=== PATIENT | female | born 1945 | race Caucasian/White ===

== ENCOUNTER 2018-03-07 07:26 | Day surgery (SDC) | payer BC ==
[2018-02-28 13:00] LABS: HEMATOCRIT 40.9 % (36.0-47.0); HEMOGLOBIN 13.8 g/dL (12.0-15.5); MEAN CORPUSCULAR HEMOGLOBIN 28.8 pg (27.0-33.4); MEAN CORPUSCULAR HGB CONC 33.8 g/dL (32.0-36.0); MEAN CORPUSCULAR VOLUME 86 fl (80-97); PLATELET COUNT 188 10^3/uL (150-450); RED BLOOD COUNT 4.79 10^6/uL (3.72-5.28); WHITE BLOOD COUNT 5.9 10^3/uL (4.0-10.5)
[2018-02-28 13:07] LABS: APPEARANCE,URINE SLIGHTLY-CLOUDY; BILIRUBIN,URINE NEGATIVE (NEGATIVE); COLOR,URINE YELLOW; GLUCOSE, URINE NEGATIVE (NEGATIVE); KETONES,URINE NEGATIVE (NEGATIVE); LEUKOCYTE ESTERASE,URINE LARGE (NEGATIVE); NITRITE,URINE NEGATIVE (NEGATIVE); PROTEIN,URINE NEGATIVE (NEGATIVE); URINE SPECIFIC GRAVITY 1.015; UROBILINOGEN,URINE NEGATIVE mg/dL (<2.0)
--- NOTE | 2018-02-28 13:26 | EKG REPORT ---
SEVERITY:- ABNORMAL ECG - SINUS RHYTHM LVH WITH SECONDARY REPOLARIZATION ABNORMALITY ANTERIOR Q WAVES, POSSIBLY DUE TO LVH : Confirmed by: Kulwant Ang MD 28-Feb-2018 13:25:22
[~2018-03-07 07:26] MED LIST: LACTATED RINGERS 1000 ML IV PRN; LIDOCAINE 0.5% INJ-PF (5 MG/ML) 50 ML SDV SUBCUT PRN
[2018-03-07 08:14] LABS: INTERNATIONAL RATION (INR) 1.04; PROTHROMBIN TIME 14.1 SEC (11.4-15.4)
[2018-03-07 08:27] LABS: POTASSIUM 4.5 mmol/L (3.6-5.0)
[2018-03-07] MEDS ORDERED: FENTANYL CITRATE INJ/PF 100 MCG/2 ML AMPUL ONE (08:50)
[2018-03-07] MEDS ORDERED: LIDOCAINE 2% INJ-PF (20 MG/ML) 10 ML AMPUL ONE (08:50)
[2018-03-07] MEDS ORDERED: MIDAZOLAM 2 MG/2 ML INJ ONE (08:51)
[2018-03-07] MEDS ORDERED: PROPOFOL INJ 200 MG/20 ML VIAL IV ONE (08:51)
[2018-03-07] MEDS ORDERED: KETOROLAC TROMETHAMINE 60 MG/2 ML SDV ONE (08:52)
[2018-03-07] MEDS ORDERED: VANCOMYCIN HCL INJ 1000 MG VIAL ONE (09:26)
[2018-03-07] MEDS ORDERED: DIPHENHYDRAMINE HCL 50 MG/ML VIAL IV PRN (09:31)
[2018-03-07] MEDS ORDERED: ONDANSETRON HCL INJ/PF 4 MG/2 ML SDV IV PRN (09:31)
[2018-03-07] MEDS ORDERED: FENTANYL CITRATE INJ/PF 100 MCG/2 ML AMPUL IV PRN ×3 (09:31)
[2018-03-07] MEDS ORDERED: PROMETHAZINE HCL INJ 25 MG/1 ML VIAL IV PRN ×2 (09:31)
--- NOTE | 2018-03-07 10:31 | OPERATIVE REPORT E ---
Operative Report NAME: SUJATA ROMAN : 1945 AGE: 72Y DATE OF SURGERY: 03/07/2018 ROOM: PREOPERATIVE DIAGNOSIS: Postmenopausal bleeding. POSTOPERATIVE DIAGNOSIS: Uterine polyps. OPERATION: D and C diagnostic hysteroscopy with removal of polyp. SURGEON: Nadiya MANCUSO M.D. ANESTHESIA: General. ESTIMATED BLOOD LOSS: Less than 5 mL. TISSUE REMOVED: Endometrial polyp. PROCEDURE: Patient was placed in a dorsal lithotomy position, prepped and draped in the usual sterile fashion. Speculum was placed. Cervix visualized and grasped with a single-toothed tenaculum and sounded to a depth of 10 cm. The hysteroscope was easily placed through the os with minimal dilation and a large polyp was noted. Using the MyoSure, this polyp was removed. Following this, sharp curettage was performed. A repeat hysteroscopy was done with findings of the polyp having been removed. The tenaculum was removed and procedure terminated. She tolerated well. Taken to recovery in good condition. DICTATING PHYSICIAN: Nadiya MANCUSO M.D. [id number] PHY#: [id number] ID: [id number] JOB#: [id number] ACCT: [id number] cc:Nadiya MANCUSO M.D. >
[2018-03-07 12:31] VITALS: BP 169/73
== END 2018-03-07 11:50 | disposition home or self-care (01) ==
LOC: OROUT 07:26
PROVIDERS: ATTEND Obstetrics & Gynecology Gynecology
PROC: 0UDB8ZX Extraction of Endometrium, Via Natural or Artificial Opening Endoscopic, Diagnostic (ICD-10-PCS; 2018-03-07)
PROC: 0UB98ZX Excision of Uterus, Via Natural or Artificial Opening Endoscopic, Diagnostic (ICD-10-PCS; principal; 2018-03-07 09:15)
DX: N95.0 Postmenopausal bleeding (principal); C54.1 Malignant neoplasm of endometrium; I10 Essential (primary) hypertension; E11.9 Type 2 diabetes mellitus without complications; E66.9 Obesity, unspecified; Z68.42 Body mass index [BMI] 45.0-49.9, adult
CPT/HCPCS: 93005; 36415 ×2; 82947; 84132; 85027; 85610; 85730; 81001; 88305 ×2; 93010; 58558; J2250; J1885; J3010; J2704; J3370; J3490; 952

== ENCOUNTER 2018-03-31 01:08 | Emergency (ER) | payer BC ==
[2018-03-31] MEDS ORDERED: NORMAL SALINE 1000 ML 500 ML IV ONE (01:54)
--- NOTE | 2018-03-31 01:56 | ER Document Report ---
ED GI/ - General Chief Complaint: Abdominal Pain Stated Complaint: ABDOMINAL PAIN Time Seen by Provider: 03/31/18 01:44 Notes: Patient is a 72-year-old female comes emergency department for chief complaint of mid to lower abdominal pain for the past 3 days, it has become constant and more painful, worse when she is standing and resolves some when she is lying flat. She denies chest pain, nausea vomiting, fever or chills. She had a normal bowel movement within the past 24 hours. Past surgeries include cholecystectomy and hernia repair in 1995, she has also been diagnosed with endometrial cancer and has a follow-up with [facility] in [place] later this month. Other medical history includes CVA (on Plavix), IDDM. TRAVEL OUTSIDE OF THE [place] IN LAST 30 DAYS: No - Related Data Allergies/Adverse Reactions: atenolol [Atenolol] Allergy (Severe, Verified 04/05/16 07:48) dapagliflozin [From Farxiga] Allergy (Severe, Verified 02/28/18 11:06) Syncope meperidine HCl [From Demerol] Allergy (Severe, Verified 04/05/16 07:48) oxycodone HCl [From Percodan] Allergy (Severe, Verified 02/28/18 11:05) oxycodone terephthalate [From Percodan] Allergy (Severe, Verified 02/28/18 11:05 ) VOMITING Penicillins Allergy (Severe, Verified 02/28/18 11:05) saxagliptin [From Onglyza] Allergy (Severe, Verified 02/28/18 11:06) adhesive tape Allergy (Verified 04/05/16 07:48) Past Medical History - General Information source: Patient - Social History Smoking Status: Never Smoker Chew tobacco use (# tins/day): No Frequency of alcohol use: None Drug Abuse: None Lives with: Family Family History: Reviewed & Not Pertinent, CAD, DM, Other - chf Patient has suicidal ideation: No Patient has homicidal ideation: No - Past Medical History Cardiac Medical History: Reports: Hx Hypercholesterolemia, Hx Hypertension Denies: Hx Coronary Artery Disease, Hx Heart Attack Pulmonary Medical History: Denies: Hx Asthma - as a child , Hx Bronchitis, Hx COPD, Hx Pneumonia Neurological Medical History: Reports: Hx Cerebrovascular Accident - Left & right-sided lacunar infarct. Denies: Hx Seizures Endocrine Medical History: Reports: Hx Diabetes Mellitus Type 2 Renal/ Medical History: Denies: Hx Peritoneal Dialysis Malignancy Medical History: Reports: Hx Lymphoma GI Medical History: Reports: Hx Gastroesophageal Reflux Disease Musculoskeletal Medical History: Reports Hx Arthritis Psychiatric Medical History: Denies: Hx Depression Past Surgical History: Reports: Hx Cardiac Catheterization - 1995 wake negative , Hx Cardiac Surgery - cardiac cath, Hx Cholecystectomy, Hx Herniorrhaphy, Hx Orthopedic Surgery, Hx Tonsillectomy - Immunizations Hx Diphtheria, Pertussis, Tetanus Vaccination: Yes Hx Pneumococcal Vaccination: 05/29/16 Review of Systems - Review of Systems Constitutional: No symptoms reported EENT: No symptoms reported Cardiovascular: No symptoms reported Respiratory: No symptoms reported Gastrointestinal: See HPI Genitourinary: No symptoms reported Female Genitourinary: No symptoms reported Musculoskeletal: No symptoms reported Skin: No symptoms reported Hematologic/Lymphatic: No symptoms reported Neurological/Psychological: No symptoms reported Physical Exam - Vital signs Vitals: Temp Pulse Resp BP Pulse Ox 98 F 81 18 172/80 H 97 03/31/18 01:18 03/31/18 01:18 03/31/18 01:18 03/31/18 01:18 03/31/18 01:18 - Notes Notes: GENERAL: Alert, interacts well. Appears calm, no noted distress HEAD: Normocephalic, atraumatic. EYES: Pupils equal, round, and reactive to light. Extraocular movements intact. ENT: Oral mucosa moist, tongue midline. NECK: Full range of motion. Supple. Trachea midline. LUNGS: Clear to auscultation bilaterally, no wheezes, rales, or rhonchi. No respiratory distress. HEART: Regular rate and rhythm. No murmur ABDOMEN: There is some middle lower abdominal tenderness, no guarding, no rebound tenderness, remaining abdominal exam is unremarkable. No noted hernias or erythema. EXTREMITIES: Moves all 4 extremities spontaneously. No edema, normal radial and dorsalis pedis pulses bilaterally. No cyanosis. BACK: no cervical, thoracic, lumbar midline tenderness. No saddle anesthesia, normal distal neurovascular exam. NEUROLOGICAL: Alert and oriented x3. Normal speech. [cranial nerves II through XII grossly intact]. PSYCH: Normal affect, normal mood. SKIN: Warm, dry, normal turgor. No rashes or lesions noted. Course - Re-evaluation Re-evalutation: Patient is actually quite well-appearing. She does have mid to lower abdominal tenderness on exam, no guarding, signs of hernia or incarcerated bowel. Mildly hypertensive initially. No fever, tachycardia, or hypotension. CBC, chemistry, lipase unremarkable. Urine still pending. CAT scan was performed because of patient's age and location of pain, however this shows no acute findings. Patient with no significant change on reevaluation. Urinalysis resulted, shows some squamous epithelials but also shows positive nitrates, large amount of white blood cells, bacteria, white blood cell clumps. Consistent with patient's physical examination, I suspect she has cystitis. No fever, confusion, or concerning symptoms otherwise. Discussed with patient. She has taken cephalosporins in the past with good results, she recently was on Cipro. Given Rocephin, placing on Keflex, culture urine, discussed follow- up and return precautions in detail, patient states satisfaction and agreement with plan. - Vital Signs Vital signs: Temp Pulse Resp BP Pulse Ox 98 F 81 18 172/80 H 97 03/31/18 01:18 03/31/18 01:18 03/31/18 01:18 03/31/18 01:18 03/31/18 01:18 - Laboratory Result Diagrams: 03/31/18 02:15 03/31/18 02:15 Laboratory results interpreted by me: 03/31/18 03/31/18 03/31/18 02:15 02:15 02:35 Plt Count 142 L BUN 22 H Glucose 236 H Total Protein 5.9 L Albumin 3.3 L Urine Nitrite POSITIVE H Urine Urobilinogen 2.0 H Ur Leukocyte Esterase LARGE H Urine Ascorbic Acid 40 H Discharge - Discharge Clinical Impression: Abdominal pain Qualifiers: Abdominal location: generalized Qualified Code(s): R10.84 - Generalized abdominal pain Condition: Stable Disposition: HOME, SELF-CARE Additional Instructions: Your CAT scan does not show any concerning new findings. You have been provided with a copy of this, give this to your provider in close follow-up. Laboratory workup was normal except for urinary tract infection. Urine has been cultured. Take Keflex antibiotics as prescribed to completion. Return if you worsen including worsening pain, vomiting, fever of 100.4 or greater, confusion, or any other concerning or worsening symptoms. Prescriptions: Cephalexin Monohydrate [Keflex 500 mg Capsule] 500 mg PO QID #28 capsule Referrals: RODRIGUEZ GEORGES MD [Primary Care Provider] - Follow up as needed
[2018-03-31 02:36] LABS: ABSOLUTE BASOPHILS # (AUTO) 0.1 10^3/uL (0.0-0.2); ABSOLUTE EOSINOPHILS # (AUTO) 0.1 10^3/uL (0.0-0.6); ABSOLUTE LYMPHOCYTES (AUTO) 1.3 10^3/uL (0.5-4.7); ABSOLUTE MONOCYTES (AUTO) 0.7 10^3/uL (0.1-1.4); ABSOLUTE NEUT (AUTO) 3.7 10^3/uL (1.7-8.2); BASOPHILS % (AUTO) 1.1 % (0-2); EOSINOPHILS % (AUTO) 2.2 % (0-6); HEMATOCRIT 39.3 % (36.0-47.0); HEMOGLOBIN 13.3 g/dL (12.0-15.5); LYMPHOCYTES % (AUTO) 22.2 % (13-45); MEAN CORPUSCULAR HEMOGLOBIN 28.9 pg (27.0-33.4); MEAN CORPUSCULAR HGB CONC 33.9 g/dL (32.0-36.0); MEAN CORPUSCULAR VOLUME 85 fl (80-97); MONOCYTES % (AUTO) 11.7 % (3-13); PLATELET COUNT 142 10^3/uL (150-450); RED BLOOD COUNT 4.61 10^6/uL (3.72-5.28); RED CELL DISTRIBUTION WIDTH 13.8 % (11.5-14.0); SEGMENTED NEUTROPHILS % (AUTO) 62.8 % (42-78); TOTAL CELLS COUNTED % (AUTO) 100 %
[2018-03-31 02:44] LABS: ALANINE AMINOTRANSFERASE 28 U/L (9-52); ALBUMIN 3.3 g/dL (3.5-5.0); ALKALINE PHOSPHATASE 76 U/L (38-126); ANION GAP 11 (5-19); ASPARTATE AMINO TRANSFERASE 20 U/L (14-36); BILIRUBIN,DIRECT 0.2 mg/dL (0.0-0.4); BILIRUBIN,TOTAL 0.6 mg/dL (0.2-1.3); BLOOD UREA NITROGEN 22 mg/dL (7-20); CALCIUM 8.9 mg/dL (8.4-10.2); CARBON DIOXIDE 28 mmol/L (22-30); CHLORIDE 106 mmol/L (98-107); GLUCOSE 236 mg/dL (75-110); LIPASE 204.2 U/L (23-300); POTASSIUM 4.3 mmol/L (3.6-5.0); SODIUM 144.5 mmol/L (137-145); TOTAL PROTEIN 5.9 g/dL (6.3-8.2)
--- NOTE | 2018-03-31 03:40 | RADIOLOGY REPORT (SQ) ---
EXAM DESCRIPTION: CT ABDOMEN PELVIS WITH IV CONTRAST COMPLETED DATE/TME: 03/31/2018 01:56 CLINICAL HISTORY: 72 years, Female, sharp mid to lower abd pain COMPARISON: 12/14/2013 TECHNIQUE: Axial CT images of the abdomen and pelvis were obtained after the administration of IV contrast. Sagittal and coronal reformats were performed. [facility]227 Images stored on PACS. All CT scanners at this facility use dose modulation, iterative reconstruction, and/or weight based dosing when appropriate to reduce radiation dose to as low as reasonably achievable (ALARA). [facility]: Dose Right [facility]: CareDose [facility]: Dose Right [facility]: Teradose 4D [facility]: [employer] LIMITATIONS: None. FINDINGS: Bases are clear. The liver is hypodense. Cholecystectomy. The pancreas, spleen, and adrenal glands are normal. Both kidneys appear unremarkable. No evidence of hydronephrosis or hydroureter. There is no intraperitoneal free air or fluid. There is no lymphadenopathy. There are atherosclerotic ulceration of the abdominal aorta without evidence of an aneurysm. The stomach, small bowel, appendix, and colon are unremarkable. The uterus is atrophic. The urinary bladder is unremarkable. There are no lytic or blastic bone lesions. IMPRESSION: No acute findings. Fatty liver. TECHNICAL DOCUMENTATION: Quality ID # [id number]: Final reports with documentation of one or more dose reduction techniques (e.g., Automated exposure control, adjustment of the mA and/or kV according to patient size, use of iterative reconstruction technique) 2010 [facility]- All Rights Reserved
[2018-03-31 03:46] LABS: APPEARANCE,URINE CLOUDY; BILIRUBIN,URINE NEGATIVE (NEGATIVE); COLOR,URINE YELLOW; GLUCOSE, URINE NEGATIVE (NEGATIVE); KETONES,URINE NEGATIVE (NEGATIVE); LEUKOCYTE ESTERASE,URINE LARGE (NEGATIVE); NITRITE,URINE POSITIVE (NEGATIVE); PROTEIN,URINE NEGATIVE (NEGATIVE); URINE SPECIFIC GRAVITY 1.023
[2018-03-31] MEDS ORDERED: CEFTRIAXONE 1 GM/D5W RTU 1 GM/50 ML RTUPB IV ONE (03:49)
[2018-03-31] MEDS ORDERED: CEFTRIAXONE INJ 1000 MG VIAL ONE (04:02)
[2018-03-31 04:45] VITALS: BP 174/67
== END 2018-03-31 04:45 | disposition home or self-care (01) ==
LOC: ER 01:08
DX: R10.84 Generalized abdominal pain (principal); R10.30 Lower abdominal pain, unspecified; C54.1 Malignant neoplasm of endometrium; E78.00 Pure hypercholesterolemia, unspecified; I10 Essential (primary) hypertension; E11.9 Type 2 diabetes mellitus without complications; Z86.73 Personal history of transient ischemic attack (TIA), and cerebral infarction without residual deficits; Z90.49 Acquired absence of other specified parts of digestive tract; Z88.6 Allergy status to analgesic agent; Z88.0 Allergy status to penicillin
CPT/HCPCS: 99284; 96361; 96374; 36415; 87040; 83690; 85025; 80053; 81001; 74177; J0696; J7030

== ENCOUNTER 2018-05-12 10:57 | Emergency (ER) | payer BC, MEDICARE ==
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
[2018-05-12 12:01] LABS: ABSOLUTE BASOPHILS # (AUTO) 0.1 10^3/uL (0.0-0.2); ABSOLUTE EOSINOPHILS # (AUTO) 0.2 10^3/uL (0.0-0.6); ABSOLUTE MONOCYTES (AUTO) 0.5 10^3/uL (0.1-1.4); BASOPHILS % (AUTO) 1.2 % (0-2); HEMATOCRIT 38.4 % (36.0-47.0); HEMOGLOBIN 12.8 g/dL (12.0-15.5); LYMPHOCYTES % (AUTO) 13.4 % (13-45); MEAN CORPUSCULAR HEMOGLOBIN 28.1 pg (27.0-33.4); MEAN CORPUSCULAR HGB CONC 33.3 g/dL (32.0-36.0); MEAN CORPUSCULAR VOLUME 84 fl (80-97); MONOCYTES % (AUTO) 6.4 % (3-13); PLATELET COUNT 296 10^3/uL (150-450); RED BLOOD COUNT 4.56 10^6/uL (3.72-5.28); RED CELL DISTRIBUTION WIDTH 14.4 % (11.5-14.0); TOTAL CELLS COUNTED % (AUTO) 100 %; WHITE BLOOD COUNT 7.8 10^3/uL (4.0-10.5)
[2018-05-12 12:09] LABS: ALANINE AMINOTRANSFERASE 21 U/L (9-52); ALBUMIN 3.5 g/dL (3.5-5.0); ALKALINE PHOSPHATASE 74 U/L (38-126); ANION GAP 8 (5-19); ASPARTATE AMINO TRANSFERASE 23 U/L (14-36); BILIRUBIN,DIRECT 0.4 mg/dL (0.0-0.4); BILIRUBIN,TOTAL 0.8 mg/dL (0.2-1.3); BLOOD UREA NITROGEN 21 mg/dL (7-20); CALCIUM 9.3 mg/dL (8.4-10.2); CARBON DIOXIDE 26 mmol/L (22-30); CHLORIDE 107 mmol/L (98-107); GLUCOSE 218 mg/dL (75-110); POTASSIUM 4.8 mmol/L (3.6-5.0); SODIUM 140.9 mmol/L (137-145); TOTAL PROTEIN 6.6 g/dL (6.3-8.2)
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
[2018-05-12 12:34] LABS: APPEARANCE,URINE SLIGHTLY-CLOUDY; BILIRUBIN,URINE NEGATIVE (NEGATIVE); COLOR,URINE YELLOW; GLUCOSE, URINE NEGATIVE (NEGATIVE); KETONES,URINE NEGATIVE (NEGATIVE); LEUKOCYTE ESTERASE,URINE SMALL (NEGATIVE); NITRITE,URINE NEGATIVE (NEGATIVE); PROTEIN,URINE NEGATIVE (NEGATIVE); URINE SPECIFIC GRAVITY 1.015; UROBILINOGEN,URINE NEGATIVE mg/dL (<2.0)
[2018-05-12 13:56] VITALS: BP 146/65
== END 2018-05-12 14:12 | disposition home or self-care (01) ==
LOC: ER 10:57
DX: F41.9 Anxiety disorder, unspecified (principal); N89.8 Other specified noninflammatory disorders of vagina; R10.2 Pelvic and perineal pain; I10 Essential (primary) hypertension; E11.9 Type 2 diabetes mellitus without complications; Z90.710 Acquired absence of both cervix and uterus; Z85.42 Personal history of malignant neoplasm of other parts of uterus; Z85.72 Personal history of non-Hodgkin lymphomas; Z88.8 Allergy status to other drugs, medicaments and biological substances; Z88.5 Allergy status to narcotic agent; Z88.0 Allergy status to penicillin; Z91.048 Other nonmedicinal substance allergy status
CPT/HCPCS: 36415; 51701; 80053; 81001; 85025; 99283

== ENCOUNTER 2018-06-11 21:12 | Inpatient (IN) | payer BC, MEDICARE ==
[2018-06-11 21:50] LABS: INTERNATIONAL RATION (INR) 1.12
[2018-06-11 22:30] LABS: VENOUS BLOOD BASE EXCESS 2.2 mmol/L; VENOUS BLOOD HCO3 26.7 mmol/L (20-32); VENOUS BLOOD PCO2 41.4 mmHg (35-63); VENOUS BLOOD PH 7.43 (7.30-7.42)
[2018-06-11 22:31] LABS: HEMATOCRIT 36.1 % (36.0-47.0); HEMOGLOBIN 12.3 g/dL (12.0-15.5); MEAN CORPUSCULAR HEMOGLOBIN 28.4 pg (27.0-33.4); MEAN CORPUSCULAR VOLUME 84 fl (80-97); PLATELET COUNT 159 10^3/uL (150-450); RED BLOOD COUNT 4.32 10^6/uL (3.72-5.28); RED CELL DISTRIBUTION WIDTH 14.5 % (11.5-14.0); WHITE BLOOD COUNT 9.1 10^3/uL (4.0-10.5)
[2018-06-11 22:48] LABS: ABSOLUTE LYMPHOCYTES# (MANUAL) 0.4 10^3/uL (0.5-4.7); ABSOLUTE MONOCYTES # (MANUAL) 0.4 10^3/uL (0.1-1.4); ABSOLUTE NEUTROPHILS# (MANUAL) 8.3 10^3/uL (1.7-8.2); BAND NEUTROPHILS % (MANUAL) 1 % (3-5); BASOPHILS % (MANUAL) 0 % (0-2); EOSINOPHILS % (MANUAL) 1 % (0-6); LYMPHOCYTES % (MANUAL) 4 % (13-45); MONOCYTES % (MANUAL) 4 % (3-13); SEGMENTED NEUTROPHILS % (MAN) 90 % (42-78); TOTAL CELLS COUNTED 100
[2018-06-11 22:49] LABS: PLATELET COMMENT ADEQUATE; RBC MORPHOLOGY COMMENT NORMO-CYTIC/CHROMIC
[2018-06-11 22:51] LABS: ALANINE AMINOTRANSFERASE 28 U/L (9-52); ALBUMIN 3.2 g/dL (3.5-5.0); ALKALINE PHOSPHATASE 74 U/L (38-126); ANION GAP 11 (5-19); ASPARTATE AMINO TRANSFERASE 23 U/L (14-36); BILIRUBIN,DIRECT 0.3 mg/dL (0.0-0.4); BILIRUBIN,TOTAL 0.9 mg/dL (0.2-1.3); BLOOD UREA NITROGEN 29 mg/dL (7-20); CALCIUM 8.9 mg/dL (8.4-10.2); CARBON DIOXIDE 24 mmol/L (22-30); CHLORIDE 101 mmol/L (98-107); GLUCOSE 200 mg/dL (75-110); POTASSIUM 4.5 mmol/L (3.6-5.0); SODIUM 136.4 mmol/L (137-145); TOTAL PROTEIN 5.9 g/dL (6.3-8.2)
[2018-06-12] MEDS ORDERED: RINGERS SOLUTION,LACTATED 2,000 ML IV ONE (00:20)
--- NOTE | 2018-06-12 00:20 | ER Document Report ---
ED General - General Chief Complaint: Flu Symptoms Stated Complaint: FEVER/CHILLS Time Seen by Provider: 06/11/18 21:53 Notes: Patient is a 72-year old female with a past medical history of morbid obesity, hypertension, diabetes, hyperlipidemia, recent hysterectomy for uterine cancer who presents with fever, chills, body aches and nausea that started earlier this morning and have been ongoing since that time. She has taken Tylenol with improvement of her fever and additional symptoms. Nothing worsens her symptoms. She attributes her symptoms to a abrasion and scratch on her left lower extremity which she believes may be infected. She has not seen or contacted her general doctor regarding today's concerns. Denies a history of similar symptoms in the past. TRAVEL OUTSIDE OF THE [place] IN LAST 30 DAYS: No - Related Data Allergies/Adverse Reactions: atenolol [Atenolol] Allergy (Severe, Verified 04/05/16 07:48) dapagliflozin [From Farxiga] Allergy (Severe, Verified 02/28/18 11:06) Syncope meperidine HCl [From Demerol] Allergy (Severe, Verified 04/05/16 07:48) oxycodone HCl [From Percodan] Allergy (Severe, Verified 02/28/18 11:05) oxycodone terephthalate [From Percodan] Allergy (Severe, Verified 02/28/18 11:05 ) VOMITING Penicillins Allergy (Severe, Verified 02/28/18 11:05) saxagliptin [From Onglyza] Allergy (Severe, Verified 02/28/18 11:06) adhesive tape Allergy (Verified 04/05/16 07:48) Past Medical History - General Information source: Patient - Social History Smoking Status: Never Smoker Frequency of alcohol use: None Drug Abuse: None Lives with: Spouse/Significant other Family History: Reviewed & Not Pertinent, CAD, DM, Other - chf Patient has suicidal ideation: No Patient has homicidal ideation: No - Past Medical History Cardiac Medical History: Reports: Hx Hypercholesterolemia, Hx Hypertension Denies: Hx Coronary Artery Disease, Hx Heart Attack Pulmonary Medical History: Denies: Hx Bronchitis, Hx COPD, Hx Pneumonia Comment Only: Hx Asthma - as a child Neurological Medical History: Reports: Hx Cerebrovascular Accident - Left & right-sided lacunar infarct. Denies: Hx Seizures Endocrine Medical History: Reports: Hx Diabetes Mellitus Type 2 Renal/ Medical History: Denies: Hx Peritoneal Dialysis Malignancy Medical History: Reports: Hx Lymphoma GI Medical History: Reports: Hx Gastroesophageal Reflux Disease Musculoskeletal Medical History: Reports Hx Arthritis Psychiatric Medical History: Denies: Hx Depression Past Surgical History: Reports: Hx Cardiac Catheterization - 1996 wake negative , Hx Cardiac Surgery - cardiac cath, Hx Cholecystectomy, Hx Herniorrhaphy, Hx Hysterectomy, Hx Orthopedic Surgery - left fibula, Hx Tonsillectomy - Immunizations Hx Diphtheria, Pertussis, Tetanus Vaccination: Yes Hx Pneumococcal Vaccination: 05/29/16 Review of Systems - Review of Systems Notes: Constitutional: Positive for fever. HENT: Negative for sore throat. Eyes: Negative for visual changes. Cardiovascular: Negative for chest pain. Respiratory: Negative for shortness of breath. Gastrointestinal: Negative for abdominal pain, positive for nausea Genitourinary: Positive for oliguria Musculoskeletal: Negative for back pain. Skin: Negative for rash. Neurological: Negative for headaches, weakness or numbness. 10 point ROS negative except as marked above and in HPI. Physical Exam - Vital signs Vitals: Temp Pulse Resp BP Pulse Ox 102.3 F H 80 16 122/55 L 98 06/11/18 21:40 06/11/18 21:40 06/11/18 21:40 06/11/18 21:40 06/11/18 21:40 Interpretation: Febrile Notes: PHYSICAL EXAMINATION: GENERAL: Appears moderately ill but in no acute distress HEAD: Atraumatic, normocephalic. EYES: Pupils equal round and reactive to light, extraocular movements intact, sclera anicteric, conjunctiva are normal. ENT: nares patent, oropharynx clear without exudates. Mildly dry mucous membranes. NECK: Normal range of motion, supple without lymphadenopathy LUNGS: Breath sounds clear to auscultation bilaterally and equal. No wheezes rales or rhonchi. HEART: Regular rate and rhythm without murmurs ABDOMEN: Soft, nontender, normoactive bowel sounds. No guarding, no rebound. No masses appreciated. EXTREMITIES: Normal range of motion, no pitting or edema. No cyanosis. NEUROLOGICAL: No focal neurological deficits. Moves all extremities spontaneously and on command. PSYCH: Normal mood, normal affect. SKIN: Warm, Dry, normal turgor, no rashes or lesions noted. 2 small scrapes over the left lower extremity that do not appear to be overtly infected Course - Re-evaluation Re-evalutation: 06/12/18 00:19 Patient presents with sepsis, elevated lactate, renal dysfunction, reports the source is from her left leg where she has findings consistent with chronic venous stasis and a possible associated cellulitis although her labs and vitals at time of presentation seem more severe than one would anticipate for the evidence of infection on the leg. The patient also reports that she has only urinated once today and does have noted renal dysfunction on her laboratories of which she does not have a history. Will obtain in and out catheterized specimen as the patient states she is unable to urinate as a pyelonephritis would make more clinical signs of her overall presentation. Will also obtain a chest x-ray as the patient was recently intubated for robotic hysterectomy. 06/12/18 02:23 Patient has been given 2 L of lactated Ringer's and still has not made any urine , bedside ultrasound of the bladder likewise does not show any urine in the bladder. This is concerning particular given that the patient is presenting with sepsis in the setting of a probable urinary source. A Sauceda catheter was placed to monitor ins and outs. Cefepime has been initiated. I discussed this case with Dr. Davidson who has accepted the patient for admission. - Vital Signs Vital signs: Temp Pulse Resp BP Pulse Ox 102.3 F H 80 16 122/55 L 97 06/11/18 21:40 06/11/18 21:40 06/11/18 21:40 06/11/18 21:40 06/11/18 21:52 - Laboratory Result Diagrams: 06/11/18 22:21 06/11/18 22:21 Laboratory results interpreted by me: 06/11/18 06/11/18 06/11/18 21:29 22:21 22:21 RDW 14.5 H Seg Neuts % (Manual) 90 H Band Neutrophils % 1 L Lymphocytes % (Manual) 4 L Abs Neuts (Manual) 8.3 H Abs Lymphs (Manual) 0.4 L VBG pH 7.43 H Sodium BUN Est GFR ( Amer) Est GFR (Non-Af Amer) Glucose Lactic Acid 3.2 H Total Protein Albumin 06/11/18 22:21 RDW Seg Neuts % (Manual) Band Neutrophils % Lymphocytes % (Manual) Abs Neuts (Manual) Abs Lymphs (Manual) VBG pH Sodium 136.4 L BUN 29 H Est GFR ( Amer) 51 L Est GFR (Non-Af Amer) 42 L Glucose 200 H Lactic Acid Total Protein 5.9 L Albumin 3.2 L - Diagnostic Test Radiology reviewed: Image reviewed, Reports reviewed Radiology results interpreted by me: 06/12/18 02:23 Chest x-ray: No acute infiltrate or pneumothorax Discharge - Discharge Clinical Impression: Lactic acid increased, Acute kidney injury, Oliguria Sepsis Qualifiers: Sepsis type: sepsis due to unspecified organism Qualified Code(s): A41.9 - Sepsis, unspecified organism Condition: Fair Disposition: ADMITTED INPATIENT Admitting Provider: Hospitalist Unit Admitted: Telemetry Referrals: RODRIGUEZ GEORGES MD [Primary Care Provider] - Follow up as needed
[2018-06-12] MEDS ORDERED: CEFEPIME 2 GM/D5W RTU 2 GM/50 ML RTUPB IV ONE (00:21)
[2018-06-12 00:39] LABS: A TYPE INFLUENZA AG NEGATIVE (NEGATIVE); B INFLUENZA AG NEGATIVE (NEGATIVE)
--- NOTE | 2018-06-12 00:44 | RADIOLOGY REPORT (SQ) ---
EXAM DESCRIPTION: XR CHEST 1 VIEW COMPLETED DATE/TME: 06/12/2018 00:11 CLINICAL HISTORY: 72 years, Female, fever, cough COMPARISON: 04/05/2016 NUMBER OF VIEWS: One TECHNIQUE: AP view the chest LIMITATIONS: None. FINDINGS: The lungs are clear. The heart is normal in size. There is no pneumothorax or pleural effusion. There is no acute fracture IMPRESSION: No acute cardiopulmonary abnormality 2010 [employer]- All Rights Reserved
[2018-06-12] MEDS ORDERED: GLUCAGON,HUMAN RECOMB 1 MG INJ IM PRN (02:26)
[2018-06-12] MEDS ORDERED: MAGNESIUM HYDROXIDE SUSP 30 ML UDCUP PO PRN (02:26)
[2018-06-12] MEDS ORDERED: DEXTROSE 50%-WATER 25 GM/50 ML DISP.SYRIN IV PRN ×2 (02:26)
[2018-06-12] MEDS ORDERED: IPRATROPIUM/ALBUTEROL 0.5-2.5 MG/3 ML AMPUL NEB PRN (02:26)
[2018-06-12] MEDS ORDERED: MAG HYDROX/AL HYDROX/SIMETH SUSP 30 ML UDCUP PO PRN (02:26)
[2018-06-12] MEDS ORDERED: DEXTROSE 40% GEL 15 GM TUBE PO PRN ×2 (02:26)
[2018-06-12] MEDS ORDERED: NORMAL SALINE 1000 ML 1,000 ML IV PRN (02:30)
[2018-06-12 03:12] LABS: APPEARANCE,URINE CLEAR; BILIRUBIN,URINE NEGATIVE (NEGATIVE); COLOR,URINE YELLOW; GLUCOSE, URINE NEGATIVE (NEGATIVE); KETONES,URINE NEGATIVE (NEGATIVE); LEUKOCYTE ESTERASE,URINE SMALL (NEGATIVE); NITRITE,URINE NEGATIVE (NEGATIVE); PROTEIN,URINE NEGATIVE (NEGATIVE); URINE SPECIFIC GRAVITY 1.016
[2018-06-12] MEDS ORDERED: VANCOMYCIN HCL 1,500 MG in DEXTROSE 5%-WATER 250 ML IV ONE (05:17)
[2018-06-12] MEDS ORDERED: VANCOMYCIN HCL 0 MG in DEXTROSE 5%-WATER 250 ML IV NR (05:30)
[2018-06-12] MEDS: HEPARIN SOD (PORCINE) 5,000 UNIT/ML 1 ML SYRINGE SUBCUT SCH ×3 (05:54→22:14)
[2018-06-12] MEDS ORDERED: VANCOMYCIN HCL INJ 1000 MG VIAL IV PRN (05:56)
[2018-06-12] MEDS ORDERED: CLONIDINE HCL 0.2 MG TABLET PO SCH (06:00)
--- NOTE | 2018-06-12 06:13 | PDOC H&P ---
History of Present Illness Admission Date/PCP: 06/12/18 02:46 RODRIGUEZ GEORGES MD Patient complains of: Fever and left leg pain History of Present Illness: SUJATA ROMAN is a 72 year old female with a past medical history of Downey cell lymphoma, morbid obesity, diabetes, stroke x2 with bilateral weakness, recent hysterectomy for uterine cancer. Patient presents with 2 weeks of left leg pain outpatient treatment with unknown sulfa antibiotic somewhat improved but develops fever of 104.0 prompting evaluation in the emergency room. She is found to have sepsis left leg erythema and edema. Based on empiric antibiotics and referred to the hospitalist for admission. Past Medical History Cardiac Medical History: Reports: Hyperlipidema, Hypertension Denies: Coronary Artery Disease, Myocardial Infarction Pulmonary Medical History: Denies: Bronchitis, Chronic Obstructive Pulmonary Disease (COPD), Pneumonia Comment Only: Asthma - as a child Neurological Medical History: Denies: Seizures Endocrine Medical History: Reports: Diabetes Mellitus Type 2 Malignancy Medical History: Reports: Lymphoma GI Medical History: Reports: Gastroesophageal Reflux Disease Musculoskeltal Medical History: Reports: Arthritis Psychiatric Medical History: Denies: Depression Hematology: Denies: Anemia Past Surgical History Past Surgical History: Reports: Cardiac Catheterization - 1995 wake negative, Cholecystectomy, Herniorrhaphy, Hysterectomy, Orthopedic Surgery - left fibula, Tonsillectomy Social History Information Source: Patient, [facility] Records Lives with: Spouse/Significant other Smoking Status: Unknown if Ever Smoked Frequency of Alcohol Use: None Hx Recreational Drug Use: No Drugs: None Hx Prescription Drug Abuse: No - Advance Directive Resuscitation Status: Full Code Family History Family History: CAD, DM, Other - chf Parental Family History Reviewed: Yes Children Family History Reviewed: Yes Sibling(s) Family History Reviewed.: Yes Medication/Allergy Home Medications: Vit A/Vit C/Vit E/Zinc/Copper [Preservision Areds Softgel] 1 each PO BID Clopidogrel Bisulfate [Plavix 75 mg Tablet] 75 mg PO DAILY #30 tablet 11/07/13 Simvastatin [Zocor 40 mg Tablet] 40 mg PO QHS #30 tablet 11/07/13 Clonidine HCl [Catapres 0.2 mg Tablet] 0.2 mg PO Q8 03/21/14 Dulaglutide [Trulicity] 1 dose SQ DAILY 02/28/18 Furosemide [Lasix] 1 tab PO DAILY 02/28/18 Insulin Degludec [Tresiba Flextouch U-100] 56 units SQ DAILY 02/28/18 Insulin Regular, Human [Novolin R (Reg) Insulin 100 unit/mL] See Protocol Potassium Chloride 1 cap PO DAILY 02/28/18 Valsartan [Diovan] 1 tab PO DAILY 02/28/18 Cephalexin Monohydrate [Keflex 500 mg Capsule] 500 mg PO QID #28 capsule Allergies/Adverse Reactions: atenolol [Atenolol] Allergy (Severe, Verified 04/05/16 07:48) dapagliflozin [From Farxiga] Allergy (Severe, Verified 02/28/18 11:06) Syncope meperidine HCl [From Demerol] Allergy (Severe, Verified 04/05/16 07:48) oxycodone HCl [From Percodan] Allergy (Severe, Verified 02/28/18 11:05) oxycodone terephthalate [From Percodan] Allergy (Severe, Verified 02/28/18 11:05 ) VOMITING Penicillins Allergy (Severe, Verified 02/28/18 11:05) saxagliptin [From Onglyza] Allergy (Severe, Verified 02/28/18 11:06) adhesive tape Allergy (Verified 04/05/16 07:48) Review of Systems Constitutional: ABSENT: chills, fever(s), headache(s), weight gain, weight loss Eyes: ABSENT: visual disturbances Ears: ABSENT: hearing changes Cardiovascular: ABSENT: chest pain, dyspnea on exertion, edema, orthropnea, palpitations Respiratory: ABSENT: cough, hemoptysis Gastrointestinal: ABSENT: abdominal pain, constipation, diarrhea, hematemesis, hematochezia, nausea, vomiting Genitourinary: ABSENT: dysuria, hematuria Musculoskeletal: ABSENT: joint swelling Integumentary: ABSENT: rash, wounds Neurological: ABSENT: abnormal gait, abnormal speech, confusion, dizziness, focal weakness, syncope Psychiatric: ABSENT: anxiety, depression, homidical ideation, suicidal ideation Endocrine: ABSENT: cold intolerance, heat intolerance, polydipsia, polyuria Hematologic/Lymphatic: ABSENT: easy bleeding, easy bruising Physical Exam Vital Signs: Temp Pulse Resp BP Pulse Ox 98.6 F 103 H 20 123/70 100 06/12/18 05:05 06/12/18 05:05 06/12/18 05:05 06/12/18 05:05 06/12/18 05:05 Intake & Output 06/10/18 06/11/18 06/12/18 11:59 11:59 11:59 Intake Total 2049 Balance 2049 Weight 127.2 kg General appearance: PRESENT: cooperative, mild distress, morbidly obese, well- developed, well-nourished Head exam: PRESENT: atraumatic, normocephalic Eye exam: PRESENT: conjunctiva pink, EOMI, PERRLA. ABSENT: scleral icterus Ear exam: PRESENT: normal external ear exam Mouth exam: PRESENT: moist, tongue midline Neck exam: ABSENT: carotid bruit, JVD, lymphadenopathy, thyromegaly Respiratory exam: PRESENT: clear to auscultation reynold. ABSENT: rales, rhonchi, wheezes Cardiovascular exam: PRESENT: RRR. ABSENT: diastolic murmur, rubs, systolic murmur Pulses: PRESENT: normal dorsalis pedis pul Vascular exam: PRESENT: normal capillary refill GI/Abdominal exam: PRESENT: normal bowel sounds, soft. ABSENT: distended, guarding, mass, organolmegaly, rebound, tenderness Rectal exam: PRESENT: deferred Extremities exam: PRESENT: full ROM, +2 edema - Left leg. ABSENT: calf tenderness, clubbing, pedal edema Neurological exam: PRESENT: alert, awake, oriented to person, oriented to place , oriented to time, oriented to situation, CN II-XII grossly intact. ABSENT: motor sensory deficit Psychiatric exam: PRESENT: appropriate affect, normal mood. ABSENT: homicidal ideation, suicidal ideation Skin exam: PRESENT: dry, erythema, warm, other - Irregular 2 cm ulcer without exudate or fluctuance.. ABSENT: cyanosis, intact, rash Results Laboratory Results: 06/12/18 02:48 Urine Color YELLOW Urine Appearance CLEAR Urine pH 5.0 Ur Specific [place] 1.016 Urine Protein NEGATIVE Urine Glucose (UA) NEGATIVE Urine Ketones NEGATIVE Urine Blood NEGATIVE Urine Nitrite NEGATIVE Ur Leukocyte Esterase SMALL H Urine WBC (Auto) 8 Urine RBC (Auto) 3 Impressions: Chest X-Ray 06/12/18 00:11 IMPRESSION: No acute cardiopulmonary abnormality 2010 [employer]- All Rights Reserved Assessment & Plan - Diagnosis (1) Sepsis Qualifiers: Sepsis type: sepsis due to unspecified organism Qualified Code(s): A41.9 - Sepsis, unspecified organism Is this a current diagnosis for this admission?: Yes Plan: Secondary to left leg cellulitis, empiric antibiotics, follow-up blood culture and lactic acid (2) Left leg cellulitis Is this a current diagnosis for this admission?: Yes Plan: Empiric antibiotics, follow-up CBC and blood culture (3) Venous stasis Is this a current diagnosis for this admission?: Yes Plan: BERNADETTE stockings and elevation (4) Diabetes Is this a current diagnosis for this admission?: Yes Plan: Outpatient regiment with Humalog sliding scale - Time Time Spent: 50 to 70 Minutes - Inpatient Certification Medical Necessity: Need Close Monitoring Due to Risk of Patient Decompensation
[2018-06-12] MEDS ORDERED: VANCOMYCIN HCL INJ 1000 MG VIAL ONE ×2 (06:16→06:59)
[2018-06-12] MEDS: ACETAMINOPHEN 325 MG TABLET PO PRN ×2 (06:54→17:06)
[2018-06-12] MEDS: VANCOMYCIN HCL 2,000 MG in DEXTROSE 5%-WATER 500 ML IV ONE ×2 (07:15→07:58)
[2018-06-12] MEDS: HUM INSULIN NPH/REG INSULIN HM 100 UNIT/1 ML 3 ML SUBCUT SCH ×2 (07:43→17:07)
--- NOTE | 2018-06-12 07:51 | EKG REPORT ---
SEVERITY:- ABNORMAL ECG - SINUS RHYTHM LEFT AXIS DEVIATION LVH WITH SECONDARY REPOLARIZATION ABNORMALITY : Confirmed by: Kulwant Ang MD 12-Jun-2018 07:50:56
[2018-06-12] MEDS ORDERED: VANCOMYCIN HCL 2,000 MG in DEXTROSE 5%-WATER 500 ML IV ONE (09:00)
[2018-06-12] MEDS: VALSARTAN 160 MG TABLET PO SCH (09:07)
[2018-06-12] MEDS: DOCUSATE SODIUM 100 MG CAPSULE PO SCH ×2 (09:07→17:03)
[2018-06-12] MEDS: FUROSEMIDE 40 MG TABLET PO SCH (09:08)
[2018-06-12] MEDS ORDERED: DULAGLUTIDE SQ SCH (10:00)
[2018-06-12] MEDS ORDERED: CLOPIDOGREL BISULFATE 75 MG TABLET PO SCH (10:00)
[2018-06-12] MEDS ORDERED: CEFTRIAXONE 1 GM/D5W RTU 1 GM/50 ML RTUPB IV SCH (10:00)
[2018-06-12] MEDS: INSULIN LISPRO 100 UNIT/ML 3 ML VIAL SUBCUT PRN ×2 (11:55→17:06)
[2018-06-12] MEDS: CLINDAMYCIN 600 MG/D5W RTU 600 MG/50 ML RTUPB IV SCH ×2 (13:09→22:12)
[2018-06-12] MEDS: CLONIDINE HCL 0.1 MG TABLET PO SCH ×2 (13:09→22:13)
--- NOTE | 2018-06-12 13:16 | PDOC PROGRESS REPORT ---
Subjective Progress Note for:: 06/12/18 Subjective:: SUJATA ROMAN is a 72 year old female with a past medical history of Mirella cell lymphoma, morbid obesity, diabetes, stroke x2 with bilateral weakness, recent hysterectomy for uterine cancer. Patient presents with 2 weeks of left leg pain outpatient treatment with unknown sulfa antibiotic somewhat improved but develops fever of 104.0 prompting evaluation in the emergency room. She is found to have sepsis left leg erythema and edema. Based on empiric antibiotics and referred to the hospitalist for admission. Patient states she underwent a robotic hysterectomy in [place] approximately 3 weeks ago. 4 days ago she developed high fevers of 104. Shaking chills she has had fevers each night. Patient does have complaint of some abdominal pain but it is unclear whether this is postoperative or not. She does have erythema on her lower extremity but she also has discoloration chronically from her leukemia. She was initiated on Rocephin and vancomycin. Urinalysis is negative she has a significant left shift on her CBC. Reason For Visit: UTI SEPSIS DIABETES MORBID OBESITY Physical Exam Vital Signs: Temp Pulse Resp BP Pulse Ox 100.9 F H 74 16 150/53 H 94 06/12/18 07:51 06/12/18 08:41 06/12/18 08:41 06/12/18 07:51 06/12/18 08:41 Intake & Output 06/11/18 06/12/18 06/13/18 06:59 06:59 06:59 Intake Total 2050 500 Output Total 400 Balance 1650 500 Weight 64.4 kg 120 kg General appearance: PRESENT: no acute distress, morbidly obese, well-developed, well-nourished Neck exam: ABSENT: carotid bruit, JVD, lymphadenopathy, thyromegaly Respiratory exam: PRESENT: clear to auscultation reynold. ABSENT: rales, rhonchi, wheezes Cardiovascular exam: PRESENT: RRR. ABSENT: diastolic murmur, rubs, systolic murmur GI/Abdominal exam: PRESENT: normal bowel sounds, soft, tenderness, other - Numerous trocar wounds no saroj drainage.. ABSENT: distended, guarding, mass, organolmegaly, rebound Extremities exam: PRESENT: +1 edema - Right leg, +2 edema - Stasis dermatitis bilaterally left leg +2 Neurological exam: PRESENT: alert, awake, oriented to person, oriented to place , oriented to time, oriented to situation, CN II-XII grossly intact. ABSENT: motor sensory deficit Skin exam: PRESENT: dry, intact, warm. ABSENT: cyanosis, rash Results Laboratory Results: 06/12/18 02:48 Urine Color YELLOW Urine Appearance CLEAR Urine pH 5.0 Ur Specific [place] 1.016 Urine Protein NEGATIVE Urine Glucose (UA) NEGATIVE Urine Ketones NEGATIVE Urine Blood NEGATIVE Urine Nitrite NEGATIVE Ur Leukocyte Esterase SMALL H Urine WBC (Auto) 8 Urine RBC (Auto) 3 Impressions: Chest X-Ray 06/12/18 00:11 IMPRESSION: No acute cardiopulmonary abnormality 2010 [employer]- All Rights Reserved Assessment & Plan - Diagnosis (1) Sepsis Qualifiers: Sepsis type: sepsis due to unspecified organism Qualified Code(s): A41.9 - Sepsis, unspecified organism Is this a current diagnosis for this admission?: Yes Plan: Lactic acid now normal patient receiving the last of 3 L will continue hydration at 150 mL's per hour. Patient will receive contrast CT we will continue hydration until the morning when a BMP is checked. Patient's febrile illness and shift on her differential would indicate a more serious infection and the cellulitis appears to be. With history of pelvic surgery less than 3 weeks ago will have to rule out deeper infection related to the surgery. CT has been ordered. Patient will receive Mucomyst prior to contrast (2) Acute kidney injury Is this a current diagnosis for this admission?: Yes Plan: Mild volume contraction and sepsis. BUN 29 and 1.26 baseline creatinine 0.6. Patient received 3 L lactic acid now normal. Sauceda catheter in place and patient making copious amounts of urine. (3) Diabetes Qualifiers: Diabetes mellitus type: type 2 Is this a current diagnosis for this admission?: Yes Plan: Hold p.o. medication sliding scale insulin. (4) Left leg cellulitis Is this a current diagnosis for this admission?: Yes Plan: Patient's left leg slightly more swollen mild tenderness but the degree of cellulitis does not appear that significant given the high fever and septic presentation. Must consider with intra-abdominal surgery less than 3 weeks ago that possible source of sepsis may reside in the pelvis. (5) Hypertension Is this a current diagnosis for this admission?: Yes Plan: Hold patient's telmisartan decrease clonidine to 0.1 every 8 hours to prevent rebound hypertension. (6) Morbid obesity Is this a current diagnosis for this admission?: Yes Plan: BMI 45 (7) Cutaneous T-cell lymphoma Is this a current diagnosis for this admission?: Yes Plan: In remission as per patient. Patient says the discoloration in her lower extremity is related to the T-cell lymphoma it has the appearance of venous stasis. (8) Venous stasis Is this a current diagnosis for this admission?: Yes Plan: Stasis dermatitis as well as T-cell lymphoma. Patient states the discoloration is correlated with her T-cell lymphoma which currently is in remission. - Time Time Spent with patient: 35 or more minutes
[2018-06-12] MEDS ORDERED: ACETYLCYSTEINE 10% NEB 400 MG/4 ML VIAL PO SCH (14:30)
[2018-06-12] MEDS: ACETYLCYSTEINE 20% SOLN 800 MG/4 ML VIAL.NEB PO SCH ×2 (14:38→22:13)
[2018-06-12] MEDS: NORMAL SALINE 1000 ML 1,000 ML IV PRN ×2 (14:38→22:40)
--- NOTE | 2018-06-12 16:11 | RADIOLOGY REPORT (SQ) ---
EXAM DESCRIPTION: CT ABD/PELVIS WITH IV ORAL COMPLETED DATE/TIME: 06/12/2018 3:46 pm REASON FOR STUDY: fever 104 sepsis BRITTNY 3 weeks ago COMPARISON: None. TECHNIQUE: CT scan of the abdomen and pelvis performed using helical scanning technique with dynamic intravenous contrast injection. Oral contrast. Images reviewed with lung, soft tissue, and bone win dows. Reconstructed coronal and sagittal MPR images reviewed. Delayed images for evaluation of the ur inary system also acquired. All images stored on PACS. All CT scanners at this facility use dose modulation, iterative reconstruction, and/or weight based d osing when appropriate to reduce radiation dose to as low as reasonably achievable (ALARA). [facility]: Dose Right [facility]: CareDose [facility]: Dose Right [facility]: Teradose 4D [facility]: Weave CONTRAST TYPE AND DOSE: contrast/concentration: Isovue 350.00 mg/ml; Total Contrast Delivered: 34.1 ml; Total Saline Delivered: 22.0 ml RENAL FUNCTION: BUN 29 creatinine 1.25 11/14/1979 RADIATION DOSE: CT Rad equipment meets quality standard of care and radiation dose reduction techniq ues were employed. CTDIvol: 26.6 - 31.0 mGy. DLP: 3240 mGy-cm.. LIMITATIONS: None. FINDINGS: LOWER CHEST: Small right pleural effusion. Trace left pleural effusion. No infiltrate. LIVER: The liver is uniformly hypoattenuating. SPLEEN: Normal size. No focal lesions. PANCREAS: No masses. No significant calcifications. No adjacent inflammation or peripancreatic fluid collections. Pancreatic duct not dilated. GALLBLADDER: Surgically absent. ADRENAL GLANDS: No significant masses or asymmetry. RIGHT KIDNEY AND URETER: No solid masses. No significant calcifications. No hydronephrosis or hyd roureter. LEFT KIDNEY AND URETER: No solid masses. No significant calcifications. No hydronephrosis or hydr oureter. AORTA AND VESSELS: No aneurysm. No dissection. Renal arteries, SMA, celiac without stenosis. RETROPERITONEUM: No retroperitoneal adenopathy, hemorrhage or masses. BOWEL AND PERITONEAL CAVITY: Mild sigmoid diverticulosis. No acute inflammatory changes. APPENDIX: Not identified. PELVIS: Catheter is present in the urinary bladder, so the bladder is not evaluated. No pelvic antonio s or fluid collections are seen. Uterus is absent. ABDOMINAL WALL: No masses. No hernias. BONES: No significant or acute findings. OTHER: No other significant finding. IMPRESSION: 1. Small pleural effusions. 2. Fatty infiltration of the liver. 3. Mild diverticulosis. 4. No acute findings are seen in the abdomen or pelvis. TECHNICAL DOCUMENTATION: JOB ID: [id number] Quality ID # [id number]: Final reports with documentation of one or more dose reduction techniques (e.g., Au tomated exposure control, adjustment of the mA and/or kV according to patient size, use of iterative reconstruction technique) 2010 [employer]- All Rights Reserved Reading location - IP/workstation name: [email or web address]
[2018-06-12] MEDS ORDERED: ONDANSETRON HCL INJ/PF 4 MG/2 ML SDV ONE (17:15)
[2018-06-12] MEDS ORDERED: ONDANSETRON HCL INJ/PF 4 MG/2 ML SDV IV PRN (17:46)
[2018-06-12] MEDS ORDERED: (PENDING PHARMACY ID) (Vit A/Vit C/Vit E/Zinc/Copper [Preservision Areds Softgel] 1 CAP) PO SCH (18:00)
[2018-06-12] MEDS ORDERED: CEFTRIAXONE SODIUM 1,000 MG in DEXTROSE 5%-WATER 50 ML IV SCH (18:00)
[2018-06-12] MEDS ORDERED: ACETYLCYSTEINE 10% NEB 400 MG/4 ML VIAL NEB SCH (22:00)
[2018-06-12] MEDS: SIMVASTATIN 40 MG TABLET PO SCH (22:13)
[2018-06-13] MEDS: CLONIDINE HCL 0.1 MG TABLET PO SCH ×3 (05:14→21:36)
[2018-06-13] MEDS: ACETAMINOPHEN 325 MG TABLET PO PRN (05:14)
[2018-06-13] MEDS: HEPARIN SOD (PORCINE) 5,000 UNIT/ML 1 ML SYRINGE SUBCUT SCH ×3 (05:15→21:36)
[2018-06-13] MEDS: CLINDAMYCIN 600 MG/D5W RTU 600 MG/50 ML RTUPB IV SCH ×2 (05:15→13:49)
[2018-06-13 07:44] LABS: HEMATOCRIT 31.6 % (36.0-47.0); HEMOGLOBIN 10.8 g/dL (12.0-15.5); MEAN CORPUSCULAR HEMOGLOBIN 28.7 pg (27.0-33.4); MEAN CORPUSCULAR HGB CONC 34.2 g/dL (32.0-36.0); MEAN CORPUSCULAR VOLUME 84 fl (80-97); PLATELET COUNT 130 10^3/uL (150-450); RED BLOOD COUNT 3.77 10^6/uL (3.72-5.28); RED CELL DISTRIBUTION WIDTH 14.6 % (11.5-14.0)
[2018-06-13] MEDS ORDERED: ACETYLCYSTEINE 10% NEB 400 MG/4 ML VIAL NEB SCH (08:00)
[2018-06-13 08:05] LABS: ANION GAP 8 (5-19); BLOOD UREA NITROGEN 23 mg/dL (7-20); CARBON DIOXIDE 26 mmol/L (22-30); CHLORIDE 105 mmol/L (98-107); GLUCOSE 122 mg/dL (75-110); SODIUM 138.8 mmol/L (137-145)
[2018-06-13 08:13] LABS: ABSOLUTE LYMPHOCYTES# (MANUAL) 0.2 10^3/uL (0.5-4.7); ABSOLUTE MONOCYTES # (MANUAL) 0.5 10^3/uL (0.1-1.4); BAND NEUTROPHILS % (MANUAL) 4 % (3-5); BASOPHILS % (MANUAL) 0 % (0-2); EOSINOPHILS % (MANUAL) 4 % (0-6); LYMPHOCYTES % (MANUAL) 3 % (13-45); MONOCYTES % (MANUAL) 7 % (3-13); SEGMENTED NEUTROPHILS % (MAN) 82 % (42-78); TOTAL CELLS COUNTED 100
[2018-06-13 08:15] LABS: HYPOCHROMASIA SLIGHT; PLATELET COMMENT DECREASED; POLYCHROMASIA SLIGHT; TOXIC GRANULATION SLIGHT
[2018-06-13] MEDS: HUM INSULIN NPH/REG INSULIN HM 100 UNIT/1 ML 3 ML SUBCUT SCH ×2 (08:53→17:48)
[2018-06-13] MEDS: FUROSEMIDE 40 MG TABLET PO SCH (09:39)
[2018-06-13] MEDS: DOCUSATE SODIUM 100 MG CAPSULE PO SCH ×2 (09:39→17:48)
[2018-06-13] MEDS: VALSARTAN 160 MG TABLET PO SCH (09:40)
[2018-06-13] MEDS: ACETYLCYSTEINE 20% SOLN 800 MG/4 ML VIAL.NEB PO SCH ×2 (09:40→21:36)
[2018-06-13] MEDS: CLOPIDOGREL BISULFATE 75 MG TABLET PO SCH (09:40)
[2018-06-13] MEDS: POTASSIUM CHLORIDE 10 MEQ CAPSULE.ER PO SCH (09:40)
[2018-06-13] MEDS ORDERED: VANCOMYCIN HCL 1,500 MG in DEXTROSE 5%-WATER 250 ML IV SCH (10:00)
[2018-06-13] MEDS: INSULIN LISPRO 100 UNIT/ML 3 ML VIAL SUBCUT PRN ×2 (12:45→17:49)
--- NOTE | 2018-06-13 17:06 | PDOC PROGRESS REPORT ---
Subjective Progress Note for:: 06/13/18 Subjective:: SUJATA ROMAN is a 72 year old female with a past medical history of Mirella cell lymphoma, morbid obesity, diabetes, stroke x2 with bilateral weakness, recent hysterectomy for uterine cancer. Patient presents with 2 weeks of left leg pain outpatient treatment with unknown sulfa antibiotic somewhat improved but develops fever of 104.0 prompting evaluation in the emergency room. She is found to have sepsis left leg erythema and edema. Based on empiric antibiotics and referred to the hospitalist for admission. 06/13/18: Patient was admitted and started on triple drug antibiotic therapy administered by IV. She is quite uncomfortable with her current IV antibiotic therapy that is causing her great deal of pain in her arm and she does not feel like her leg is so bad that it requires all of this (she states that she waves her arms towards the IV pole and the multiple bags hanging from it). She states she is having essentially no pain in her leg and it appears to be about the same as it was when she was admitted and the same as it was for a couple of days prior to her admission. She felt like her fever might have been coming from her recent abdominal surgery (3 weeks ago). Patient's abdomen is soft bowel sounds are excellent with good healing abdominal surgical wounds noted and no tenderness to palpation. She is uncertain what she thinks she needs to have done and I have discussed with her the possibility that we should discontinue the IV antibiotics which she is very emphatically in favor of and that we should consider going back to just a single oral antibiotic that should cover most of the infectious etiologies that we could be dealing with in her leg or her abdomen or in her pelvis for that matter. She is very much in favor of this. We have decided to treat her with clindamycin 300 mg p.o. 4 times daily with meals and at bedtime with a snack. Reason For Visit: UTI SEPSIS DIABETES MORBID OBESITY Physical Exam Vital Signs: Temp Pulse Resp BP Pulse Ox 98.5 F 78 16 136/54 H 96 06/13/18 11:47 06/13/18 14:09 06/13/18 14:09 06/13/18 11:47 06/13/18 14:09 Intake & Output 06/11/18 06/12/18 06/13/18 23:59 23:59 23:59 Intake Total 5300 1893 Output Total 650 1600 Balance 4650 293 Weight 130.8 kg General appearance: PRESENT: no acute distress, cooperative, morbidly obese Head exam: PRESENT: atraumatic, normocephalic Eye exam: PRESENT: EOMI. ABSENT: conjunctival injection, nystagmus, scleral icterus Ear exam: PRESENT: normal external ear exam. ABSENT: drainage Mouth exam: PRESENT: moist, tongue midline Neck exam: ABSENT: thyromegaly, tracheal deviation Respiratory exam: PRESENT: clear to auscultation reynold, symmetrical, unlabored Cardiovascular exam: PRESENT: RRR. ABSENT: clicks, gallop, rubs Vascular exam: PRESENT: normal capillary refill. ABSENT: pallor GI/Abdominal exam: PRESENT: normal bowel sounds, soft Rectal exam: PRESENT: deferred Extremities exam: ABSENT: clubbing, joint swelling Musculoskeletal exam: PRESENT: tenderness - Right arm at IV site without erythema or edema.. ABSENT: deformity, dislocation Neurological exam: PRESENT: alert, awake, oriented to person, oriented to place , oriented to time, oriented to situation. ABSENT: CN II-XII grossly intact, motor sensory deficit Psychiatric exam: PRESENT: appropriate affect, normal mood Skin exam: PRESENT: other - Small 1-2 cm superficial venous stasis ulcers present on the left lower extremity with minimal erythema and no evidence of induration or fluctuance.. Well-healing 1-2 cm abdominal incisions x3.. ABSENT : jaundice, rash, urticaria Results Laboratory Results: 06/13/18 07:00 06/13/18 07:00 06/13/18 06/13/18 07:00 07:00 WBC 7.0 RBC 3.77 Hgb 10.8 L Hct 31.6 L MCV 84 MCH 28.7 MCHC 34.2 RDW 14.6 H Plt Count 130 L Seg Neutrophils % Not Reportable Lymphocytes % Not Reportable Monocytes % Not Reportable Eosinophils % Not Reportable Basophils % Not Reportable Absolute Neutrophils Not Reportable Absolute Lymphocytes Not Reportable Absolute Monocytes Not Reportable Absolute Eosinophils Not Reportable Absolute Basophils Not Reportable Sodium 138.8 Potassium 4.0 Chloride 105 Carbon Dioxide 26 Anion Gap 8 BUN 23 H Creatinine 0.74 Est GFR ( Amer) > 60 Est GFR (Non-Af Amer) > 60 Glucose 122 H Calcium 8.0 L Impressions: Abdomen/Pelvis CT 06/12/18 00:00 IMPRESSION: 1. Small pleural effusions. 2. Fatty infiltration of the liver. 3. Mild diverticulosis. 4. No acute findings are seen in the abdomen or pelvis. Chest X-Ray 06/12/18 00:11 IMPRESSION: No acute cardiopulmonary abnormality 2010 [facility]- All Rights Reserved Assessment & Plan - Diagnosis (1) Left leg cellulitis Is this a current diagnosis for this admission?: Yes Plan: Patient will have triple antibiotic therapy discontinued at this point as the infection does not appear to be significant enough to require treatment with vancomycin, cefepime and clindamycin IV. She will be converted to oral clindamycin and evaluated over the next 12-24 hours for possible discharge. There is no evidence to support the diagnosis of sepsis at this time. Morning laboratory evaluation with a CBC, BMP, & magnesium will be ordered. (2) Hypertension Qualifiers: Hypertension type: essential hypertension Qualified Code(s): I10 - Essential (primary) hypertension Is this a current diagnosis for this admission?: Yes Plan: Patient will be maintained on her usual antihypertensive medications as much as possible during her hospital course though some may need to be substituted due to availability. Her blood pressure has been in good control and she will most likely be discharged on her prehospital medications. I personally evaluated the patient's chest x-ray and found no acute cardiopulmonary disease present to my observation. (3) Morbid obesity Is this a current diagnosis for this admission?: Yes Plan: Patient is being treated with a diabetic diet and this is made that she needs to control her dietary intake and reduce weight to improve her overall health. She understands this intellectually but agrees that it is much more difficult in practice. We will provide her with an appropriate diet during her hospital course and any education or support she might need for eating a more appropriate diet when she goes home. (4) Acute kidney injury Is this a current diagnosis for this admission?: Yes Plan: Her initial creatinine was 1.25 and it is dropped to 0.74 after hydration overnight. Her acute kidney injury is now resolved. (5) Lactic acid increased Is this a current diagnosis for this admission?: Yes Plan: Her lactic acid was initially greater than 3 but with a short course of IV fluids it had dropped to the normal range. This would indicate that the patient most likely did not have sepsis as there is no evidence of endorgan damage and only minimal supportive criteria (history of fever). - Time Time Spent with patient: 35 or more minutes
[2018-06-13] MEDS: CLINDAMYCIN HCL 150 MG CAPSULE PO SCH ×2 (18:23→23:23)
[2018-06-13] MEDS: SIMVASTATIN 40 MG TABLET PO SCH (21:36)
[2018-06-14] MEDS: CLINDAMYCIN HCL 150 MG CAPSULE PO SCH (05:50)
[2018-06-14] MEDS: CLONIDINE HCL 0.1 MG TABLET PO SCH (05:50)
[2018-06-14] MEDS: HEPARIN SOD (PORCINE) 5,000 UNIT/ML 1 ML SYRINGE SUBCUT SCH (05:51)
[2018-06-14 05:52] LABS: ABSOLUTE EOSINOPHILS # (AUTO) 0.1 10^3/uL (0.0-0.6); ABSOLUTE LYMPHOCYTES (AUTO) 0.9 10^3/uL (0.5-4.7); ABSOLUTE MONOCYTES (AUTO) 0.6 10^3/uL (0.1-1.4); ABSOLUTE NEUT (AUTO) 2.5 10^3/uL (1.7-8.2); BASOPHILS % (AUTO) 0.6 % (0-2); EOSINOPHILS % (AUTO) 2.9 % (0-6); HEMATOCRIT 32.7 % (36.0-47.0); HEMOGLOBIN 11.2 g/dL (12.0-15.5); LYMPHOCYTES % (AUTO) 21.3 % (13-45); MEAN CORPUSCULAR HEMOGLOBIN 28.5 pg (27.0-33.4); MEAN CORPUSCULAR HGB CONC 34.2 g/dL (32.0-36.0); MEAN CORPUSCULAR VOLUME 83 fl (80-97); MONOCYTES % (AUTO) 14.5 % (3-13); PLATELET COUNT 138 10^3/uL (150-450); RED BLOOD COUNT 3.93 10^6/uL (3.72-5.28); RED CELL DISTRIBUTION WIDTH 14.5 % (11.5-14.0); SEGMENTED NEUTROPHILS % (AUTO) 60.7 % (42-78); TOTAL CELLS COUNTED % (AUTO) 100 %; WHITE BLOOD COUNT 4.1 10^3/uL (4.0-10.5)
[2018-06-14 06:30] LABS: BLOOD UREA NITROGEN 16 mg/dL (7-20); CALCIUM 8.1 mg/dL (8.4-10.2); CARBON DIOXIDE 25 mmol/L (22-30); GLUCOSE 109 mg/dL (75-110); POTASSIUM 3.8 mmol/L (3.6-5.0); SODIUM 139.4 mmol/L (137-145)
[2018-06-14 06:33] LABS: ANION GAP 8 (5-19); CHLORIDE 106 mmol/L (98-107)
[2018-06-14] MEDS: HUM INSULIN NPH/REG INSULIN HM 100 UNIT/1 ML 3 ML SUBCUT SCH (09:45)
[2018-06-14] MEDS: POTASSIUM CHLORIDE 10 MEQ CAPSULE.ER PO SCH (09:46)
[2018-06-14] MEDS: CLOPIDOGREL BISULFATE 75 MG TABLET PO SCH (09:46)
[2018-06-14] MEDS: VALSARTAN 160 MG TABLET PO SCH (09:46)
[2018-06-14] MEDS: FUROSEMIDE 40 MG TABLET PO SCH (09:46)
[2018-06-14] MEDS: DOCUSATE SODIUM 100 MG CAPSULE PO SCH (09:46)
[2018-06-14] MEDS ORDERED: MUPIROCIN 2% OINTMENT 22 GM TP SCH (10:00)
[2018-06-14 10:33] VITALS: BP 152/52
--- NOTE | 2018-06-14 19:43 | PDOC DISCHARGE SUMMARY ---
General - Admit/Disc Date/PCP Admission Date/Primary Care Provider: 06/12/18 02:46 RODRIGUEZ GEORGES MD Discharge Date: 06/14/18 - Discharge Diagnosis (1) Left leg cellulitis Is this a current diagnosis for this admission?: Yes Summary: Initially He was started on triple intravenous antibiotic therapy for sepsis. That therapy was discontinued the following morning as the infection did not appear to be significant enough to require treatment with vancomycin, cefepime and clindamycin IV. She was converted to oral clindamycin and evaluated over the next 12-24 hours with no evidence of progressive infection. Sujata's left leg has several small abrasions with minimal local scabbing of the superficial abrasions/ulcerations. There is virtually no erythema associated with these and as such we will continue to be treated with Bactroban topically as she finishes her the last 5 days of her oral antibiotic therapy course. (2) Hypertension Is this a current diagnosis for this admission?: Yes Summary: Sujata was maintained on her usual antihypertensive medications as much as possible during her hospital course though some may need to be substituted due to availability. Her blood pressure has been in good control and she will most likely be discharged on her prehospital medications. I personally evaluated the patient's chest x-ray and found no acute cardiopulmonary disease present to my observation. (3) Morbid obesity Is this a current diagnosis for this admission?: Yes Summary: Sujata was treated with a diabetic diet and this is made that she needs to control her dietary intake and reduce weight to improve her overall health. She understands this intellectually but agrees that it is much more difficult in practice. She refused home health nursing care with dietary instruction and ongoing monitoring and assistance at the time of discharge. (4) Acute kidney injury Is this a current diagnosis for this admission?: Yes Summary: Her initial creatinine was 1.25 and it is dropped to 0.74 after hydration overnight. Her acute kidney injury is now resolved. (5) Lactic acid increased Is this a current diagnosis for this admission?: Yes Summary: Her lactic acid was initially greater than 3 but with a short course of IV fluids it had dropped to the normal range. This would indicate that the patient most likely did not have sepsis, as there is no evidence of endorgan damage and only minimal supportive criteria (history of fever). Additionally the patient provided the added information that she drinks very little fluid at home and is been told by her primary care physician she needs to consume substantially more fluid because she is continually dehydrated. With her state of chronic dehydration she is much more likely to develop atelectasis with inactivity and therefore fever associated with atelectasis. This is been discussed with patient and she will make an effort to try to drink more fluids although she states that this is not ever worked well for her in the past. - Additional Information Resuscitation Status: Full Code Discharge Diet: Diabetic Discharge Activity: Activity As Tolerated, Balance Activity w/Rest, Walk Frequently Prescriptions: Clindamycin HCl [Cleocin 150 mg Capsule] 300 mg PO TID 5 Days #30 capsule Mupirocin [Bactroban 2% Ointment 22 gm] 1 applic TP BID 7 Days #22 gm Home Medications: Clonidine HCl [Catapres 0.2 mg Tablet] 0.2 mg PO Q8 06/12/18 Clopidogrel Bisulfate [Plavix 75 mg Tablet] 75 mg PO DAILY 06/12/18 Furosemide [Lasix 40 mg Tablet] 40 mg PO DAILY 06/12/18 Insulin Aspart [Novolog Flexpen] See Protocol SQ MEALS 06/12/18 Insulin Degludec [Tresiba Flextouch U-200] 56 units SQ DAILY 06/12/18 Olmesartan Medoxomil 40 mg PO DAILY 06/12/18 Potassium Chloride 10 meq PO DAILY 06/12/18 Simvastatin 40 mg PO QHS 06/12/18 Vit A/Vit C/Vit E/Zinc/Copper [Preservision Areds Softgel] 1 cap PO BID Clindamycin HCl [Cleocin 150 mg Capsule] 300 mg PO TID 5 Days #30 capsule Mupirocin [Bactroban 2% Ointment 22 gm] 1 applic TP BID 7 Days #22 gm 06/14/18 History of Present Illness History of Present Illness: SUJATA ROMAN is a 72 year old female with a past medical history of Mirella cell lymphoma, morbid obesity, diabetes, stroke x2 with bilateral weakness, recent hysterectomy for uterine cancer. Patient presents with 2 weeks of left leg pain outpatient treatment with unknown sulfa antibiotic somewhat improved but develops fever of 104.0 prompting evaluation in the emergency room. She is found to have sepsis left leg erythema and edema. Based on empiric antibiotics and referred to the hospitalist for admission. Hospital Course Hospital Course: 06/13/18: Patient was admitted and started on triple drug antibiotic therapy administered by IV. She is quite uncomfortable with her current IV antibiotic therapy that is causing her great deal of pain in her arm and she does not feel like her leg is so bad that it requires all of this (she states that she waves her arms towards the IV pole and the multiple bags hanging from it). She states she is having essentially no pain in her leg and it appears to be about the same as it was when she was admitted and the same as it was for a couple of days prior to her admission. She felt like her fever might have been coming from her recent abdominal surgery (3 weeks ago). Patient's abdomen is soft bowel sounds are excellent with good healing abdominal surgical wounds noted and no tenderness to palpation. She is uncertain what she thinks she needs to have done and I have discussed with her the possibility that we should discontinue the IV antibiotics which she is very emphatically in favor of and that we should consider going back to just a single oral antibiotic that should cover most of the infectious etiologies that we could be dealing with in her leg or her abdomen or in her pelvis for that matter. She is very much in favor of this. We have decided to treat her with clindamycin 300 mg p.o. 4 times daily with meals and at bedtime with a snack. 06/14/18: Abigail did very well with oral antibiotics overnight and has noticed that she generally feels better today than she did yesterday. She is looking forward to going home today and declines the offer of home health care. Because of her excellent overall progress and her continued improvement with oral antibiotic therapy she will be discharged home in improved and stable condition. Physical Exam Vital Signs: Temp Pulse Resp BP Pulse Ox 98.7 F 78 16 152/52 H 95 06/14/18 11:48 06/14/18 11:48 06/14/18 11:48 06/14/18 11:48 06/14/18 11:48 Intake & Output 06/12/18 06/13/18 06/14/18 23:59 23:59 23:59 Intake Total 5300 2866 459 Output Total 650 2700 1625 Balance 4650 166 -1166 Weight 130.8 kg 130.9 kg General appearance: PRESENT: no acute distress, cooperative, morbidly obese Head exam: PRESENT: atraumatic, normocephalic Respiratory exam: PRESENT: symmetrical, unlabored Cardiovascular exam: PRESENT: RRR. ABSENT: clicks, gallop, rubs Vascular exam: PRESENT: normal capillary refill. ABSENT: pallor GI/Abdominal exam: PRESENT: normal bowel sounds, soft Rectal exam: PRESENT: deferred Neurological exam: PRESENT: alert, oriented to person, oriented to place, oriented to time, oriented to situation Skin exam: ABSENT: other - Superficial abrasions of the left lower extremity are again noted with no evidence of significant infection. Changes of chronic venous stasis are present on the bilateral lower extremities. Results Laboratory Results: 06/14/18 05:13 06/14/18 05:13 06/14/18 06/14/18 05:13 05:13 WBC 4.1 RBC 3.93 Hgb 11.2 L Hct 32.7 L MCV 83 MCH 28.5 MCHC 34.2 RDW 14.5 H Plt Count 138 L Seg Neutrophils % 60.7 Lymphocytes % 21.3 Monocytes % 14.5 H Eosinophils % 2.9 Basophils % 0.6 Absolute Neutrophils 2.5 Absolute Lymphocytes 0.9 Absolute Monocytes 0.6 Absolute Eosinophils 0.1 Absolute Basophils 0.0 Sodium 139.4 Potassium 3.8 Chloride 106 Carbon Dioxide 25 Anion Gap 8 BUN 16 Creatinine 0.71 Est GFR ( Amer) > 60 Est GFR (Non-Af Amer) > 60 Glucose 109 Calcium 8.1 L 06/12/18 02:48 [place] Catheter Urine Culture - Final NO GROWTH 2 DAYS Impressions: Abdomen/Pelvis CT 06/12/18 00:00 IMPRESSION: 1. Small pleural effusions. 2. Fatty infiltration of the liver. 3. Mild diverticulosis. 4. No acute findings are seen in the abdomen or pelvis. Chest X-Ray 06/12/18 00:11 IMPRESSION: No acute cardiopulmonary abnormality 2010 [employer]- All Rights Reserved Qualifiers - * PATIENT BEING DISCHARGED WITH ANY OF THE FOLLOWING DIAGNOSIS: No - [id number] Plan Discharge Plan: Patient is discharged home in improved and stable condition. Offer of home health services as refused. Time Spent: Greater than 30 Minutes
== END 2018-06-14 13:27 | disposition home or self-care (01) | DRG 603 ==
LOC: ER 21:12 → EH 06-12 02:46 → 5 06-12 04:45
PROVIDERS: ADMIT Internal Medicine; ATTEND Internal Medicine
PROC: 3E0F73Z Introduction of Anti-inflammatory into Respiratory Tract, Via Natural or Artificial Opening (ICD-10-PCS; principal; 2018-06-12)
PROC: 3E02340 Introduction of Influenza Vaccine into Muscle, Percutaneous Approach (ICD-10-PCS; 2018-06-14)
DX: L03.116 Cellulitis of left lower limb (principal); N17.9 Acute kidney failure, unspecified; I69.359 Hemiplegia and hemiparesis following cerebral infarction affecting unspecified side; Z68.42 Body mass index [BMI] 45.0-49.9, adult; E11.9 Type 2 diabetes mellitus without complications; E66.01 Morbid (severe) obesity due to excess calories; I10 Essential (primary) hypertension; K76.0 Fatty (change of) liver, not elsewhere classified; K57.90 Diverticulosis of intestine, part unspecified, without perforation or abscess without bleeding; K21.9 Gastro-esophageal reflux disease without esophagitis; E78.00 Pure hypercholesterolemia, unspecified; M19.90 Unspecified osteoarthritis, unspecified site; I87.8 Other specified disorders of veins; F10.21 Alcohol dependence, in remission; Z90.49 Acquired absence of other specified parts of digestive tract; Z23 Encounter for immunization; Z79.899 Other long term (current) drug therapy; Z79.4 Long term (current) use of insulin; Z90.710 Acquired absence of both cervix and uterus; Z85.42 Personal history of malignant neoplasm of other parts of uterus; Z85.821 Personal history of Merkel cell carcinoma; Z88.6 Allergy status to analgesic agent; Z88.8 Allergy status to other drugs, medicaments and biological substances; Z88.0 Allergy status to penicillin; Z83.3 Family history of diabetes mellitus; Z82.49 Family history of ischemic heart disease and other diseases of the circulatory system
CPT/HCPCS: 36415; 71045; 74177; 80048; 80053; 81001; 82803; 82962; 83036; 83605; 83735; 85025; 85610; 87040; 87086; 87804; 90471; 90686; 93005; 93010; 96365; 99285; G0008; J0692; J0696; J1644; J1815; J2405; J3370; J3490; J7030; J7060; J7120

== ENCOUNTER 2018-08-14 11:05 | Emergency (ER) | payer BC, MEDICARE ==
--- NOTE | 2018-08-14 11:24 | ER Document Report ---
ED Medical Screen (RME) - General Chief Complaint: Arm Pain Stated Complaint: ARM PAIN Time Seen by Provider: 08/14/18 11:12 Mode of Arrival: Ambulatory Information source: Patient, Relative, [facility] Records Notes: 73-year-old female with hypertension, hyperlipidemia, type 2 diabetes, previous CVA, arthritis presents with complaint of right shoulder pain that started 4 days prior to arrival. Patient denies injury. Admits to nausea and recent diarrhea that stopped yesterday. I have greeted and performed a rapid initial assessment of this patient. A comprehensive ED assessment and evaluation of the patient, analysis of test results and completion of medical decision making process we will be contacted by additional ED providers. PHYSICAL EXAMINATION: Vital signs reviewed-afebrile, hypertensive GENERAL: Well-appearing, well-nourished and in no acute distress. LUNGS: No respiratory distress Musculoskeletal: Limited range of motion of the right shoulder without obvious deformity. NEUROLOGICAL: Normal speech, PSYCH: Normal mood, normal affect. SKIN: Warm, Dry, normal turgor, no rashes or lesions noted. TRAVEL OUTSIDE OF THE [place] IN LAST 30 DAYS: No - HPI Onset: Other Onset/Duration: Gradual, Persistent Quality of pain: Throbbing Severity: Moderate Associated Symptoms: Chest pain, Diarrhea, Nausea, Other Exacerbated by: Movement Relieved by: Denies Similar symptoms previously: No Recently seen / treated by doctor: Yes - Related Data Smoking: Non-smoker Frequency of alcohol use: None Drug Abuse: None Allergies/Adverse Reactions: atenolol [Atenolol] Allergy (Severe, Verified 08/14/18 11:05) dapagliflozin [From Farxiga] Allergy (Severe, Verified 08/14/18 11:05) Syncope meperidine HCl [From Demerol] Allergy (Severe, Verified 08/14/18 11:05) oxycodone HCl [From Percodan] Allergy (Severe, Verified 08/14/18 11:05) Penicillins Allergy (Severe, Verified 08/14/18 11:05) saxagliptin [From Onglyza] Allergy (Severe, Verified 08/14/18 11:05) adhesive tape Allergy (Verified 08/14/18 11:05) Past Medical History - Social History Chew tobacco use (# tins/day): No Frequency of alcohol use: None Drug Abuse: None Family history: Reviewed & Not Pertinent - Past Medical History Cardiac Medical History: Reports: Hx Hypercholesterolemia, Hx Hypertension Denies: Hx Coronary Artery Disease, Hx Heart Attack Pulmonary Medical History: Denies: Hx Bronchitis, Hx COPD, Hx Pneumonia Comment Only: Hx Asthma - as a child Neurological Medical History: Reports: Hx Cerebrovascular Accident - Left & right-sided lacunar infarct. Denies: Hx Seizures Endocrine Medical History: Reports: Hx Diabetes Mellitus Type 2 Renal/ Medical History: Denies: Hx Peritoneal Dialysis Malignancy Medical History: Reports: Hx Lymphoma GI Medical History: Reports: Hx Gastroesophageal Reflux Disease Musculoskeltal Medical History: Reports Hx Arthritis Psychiatric Medical History: Denies: Hx Depression Past Surgical History: Reports: Hx Cardiac Catheterization - 1996 wake negative , Hx Cardiac Surgery - cardiac cath, Hx Cholecystectomy, Hx Herniorrhaphy, Hx Hysterectomy, Hx Orthopedic Surgery - left fibula, Hx Tonsillectomy - Immunizations Hx Diphtheria, Pertussis, Tetanus Vaccination: Yes History of Influenza Vaccine for 05/2017 - 10/2017 Season: Yes Influenza Administration Date for 05/2017 - 10/2017 Season: 05/29/17 Physical Exam - Vital signs Vitals: Temp Pulse Resp BP Pulse Ox 98.6 F 88 18 151/58 H 97 08/14/18 11:08 08/14/18 11:08 08/14/18 11:08 08/14/18 11:08 08/14/18 11:08 Course - Vital Signs Vital signs: Temp Pulse Resp BP Pulse Ox 98.6 F 88 18 151/58 H 97 08/14/18 11:08 08/14/18 11:08 08/14/18 11:08 08/14/18 11:08 08/14/18 11:08 Doctor's Discharge - Discharge Referrals: RODRIGUEZ GEORGES MD [Primary Care Provider] - Follow up as needed
--- NOTE | 2018-08-14 12:09 | RADIOLOGY REPORT (SQ) ---
EXAM DESCRIPTION: SHOULDER RIGHT 2 OR MORE VIEWS COMPLETED DATE/TIME: 08/14/2018 11:57 am REASON FOR STUDY: right shoulder upper chest pain COMPARISON: None. NUMBER OF VIEWS: Three views. TECHNIQUE: Internal rotation, external rotation, and Y view images acquired of the right shoulder. LIMITATIONS: None. FINDINGS: MINERALIZATION: Normal. BONES: No acute fracture or dislocation. No worrisome bone lesions. No significant osteophytes. GLENOHUMERAL JOINT: No significant findings. ACROMIOCLAVICULAR JOINT: No large osteophytes. SOFT TISSUES: Calcification at the insertion of the rotator cuff. VISUALIZED RIBS, SPINE, AND LUNG: No other significant finding. OTHER: No other significant finding. IMPRESSION: Calcific tendinitis. TECHNICAL DOCUMENTATION: JOB ID: [id number] [employer]- All Rights Reserved Reading location - IP/workstation name: [email or web address]
--- NOTE | 2018-08-14 12:10 | RADIOLOGY REPORT (SQ) ---
EXAM DESCRIPTION: CHEST 2 VIEWS COMPLETED DATE/TIME: 08/14/2018 11:57 am REASON FOR STUDY: right upper chest pain COMPARISON: 04/05/2016 EXAM PARAMETERS: NUMBER OF VIEWS: two views TECHNIQUE: Digital Frontal and Lateral radiographic views of the chest acquired. RADIATION DOSE: NA LIMITATIONS: none FINDINGS: LUNGS AND PLEURA: No opacities, masses or pneumothorax. No pleural effusion. MEDIASTINUM AND HILAR STRUCTURES: No masses or contour abnormalities. HEART AND VASCULAR STRUCTURES: Heart normal size. No evidence for failure. BONES: No acute findings. HARDWARE: None in the chest. OTHER: No other significant finding. IMPRESSION: NO ACUTE RADIOGRAPHIC FINDING IN THE CHEST. TECHNICAL DOCUMENTATION: JOB ID: [id number] [employer]- All Rights Reserved Reading location - IP/workstation name: [email or web address]
--- NOTE | 2018-08-14 13:22 | EKG REPORT ---
SEVERITY:- ABNORMAL ECG - SINUS RHYTHM LEFT AXIS DEVIATION LVH WITH SECONDARY REPOLARIZATION ABNORMALITY : Confirmed by: Kulwant Ang MD 14-Aug-2018 13:21:52
[2018-08-14] MEDS ORDERED: LIDOCAINE 5% (700 MG) TRANSDERMAL ADH..PATCH TP ONE (14:35)
--- NOTE | 2018-08-14 14:43 | ER Document Report ---
ED General - General Chief Complaint: Arm Pain Stated Complaint: ARM PAIN Time Seen by Provider: 08/14/18 11:12 Mode of Arrival: Ambulatory TRAVEL OUTSIDE OF THE [place] IN LAST 30 DAYS: No - HPI Patient complains to provider of: Right arm pain Notes: Patient coming in for right arm pain patient localizes the pain to the top portion of her shoulder at the coracoid process and also at the distal humerus. Patient states approximately a week ago she did have a fall. Patient states pain started at that time. Patient denies any fever chills nausea vomiting diarrhea denies any other complaints states she has been taking Tylenol for pain. - Related Data Allergies/Adverse Reactions: atenolol [Atenolol] Allergy (Severe, Verified 08/14/18 11:05) dapagliflozin [From Farxiga] Allergy (Severe, Verified 08/14/18 11:05) Syncope meperidine HCl [From Demerol] Allergy (Severe, Verified 08/14/18 11:05) oxycodone HCl [From Percodan] Allergy (Severe, Verified 08/14/18 11:05) Penicillins Allergy (Severe, Verified 08/14/18 11:05) saxagliptin [From Onglyza] Allergy (Severe, Verified 08/14/18 11:05) adhesive tape Allergy (Verified 08/14/18 11:05) Past Medical History - General Information source: Patient, Relative, [facility] Records - Social History Smoking Status: Never Smoker Chew tobacco use (# tins/day): No Frequency of alcohol use: None Drug Abuse: None Family History: CAD, DM, Other - chf Patient has suicidal ideation: No Patient has homicidal ideation: No - Past Medical History Cardiac Medical History: Reports: Hx Hypercholesterolemia, Hx Hypertension Denies: Hx Coronary Artery Disease, Hx Heart Attack Pulmonary Medical History: Denies: Hx Bronchitis, Hx COPD, Hx Pneumonia Comment Only: Hx Asthma - as a child Neurological Medical History: Reports: Hx Cerebrovascular Accident - Left & right-sided lacunar infarct. Denies: Hx Seizures Endocrine Medical History: Reports: Hx Diabetes Mellitus Type 2 Renal/ Medical History: Denies: Hx Peritoneal Dialysis Malignancy Medical History: Reports: Hx Lymphoma GI Medical History: Reports: Hx Gastroesophageal Reflux Disease Musculoskeletal Medical History: Reports Hx Arthritis Psychiatric Medical History: Denies: Hx Depression Past Surgical History: Reports: Hx Cardiac Catheterization - 1995 wake negative , Hx Cardiac Surgery - cardiac cath, Hx Cholecystectomy, Hx Herniorrhaphy, Hx Hysterectomy, Hx Orthopedic Surgery - left fibula, Hx Tonsillectomy - Immunizations Hx Diphtheria, Pertussis, Tetanus Vaccination: Yes Hx Pneumococcal Vaccination: 05/29/16 Review of Systems - Review of Systems Constitutional: No symptoms reported EENT: No symptoms reported Cardiovascular: No symptoms reported Respiratory: No symptoms reported Gastrointestinal: No symptoms reported Genitourinary: No symptoms reported Female Genitourinary: No symptoms reported Musculoskeletal: Other - Right shoulder pain Skin: No symptoms reported Hematologic/Lymphatic: No symptoms reported Neurological/Psychological: No symptoms reported -: Yes All other systems reviewed and negative Physical Exam - Vital signs Vitals: Temp Pulse Resp BP Pulse Ox 98.6 F 88 18 151/58 H 97 08/14/18 11:08 08/14/18 11:08 08/14/18 11:08 08/14/18 11:08 08/14/18 11:08 Interpretation: Normal - General General appearance: Appears well, Alert - HEENT Head: Normocephalic, Atraumatic Eyes: Normal Pupils: PERRL - Respiratory Respiratory status: No respiratory distress Chest status: Nontender Breath sounds: Normal Chest palpation: Normal - Cardiovascular Rhythm: Regular Heart sounds: Normal auscultation Murmur: No - Abdominal Inspection: Normal Distension: No distension Bowel sounds: Normal Tenderness: Nontender Organomegaly: No organomegaly - Back Back: Normal, Nontender - Extremities General upper extremity: Normal inspection, Normal color, Normal ROM, Normal temperature, Other - Tenderness to palpation of the anterior portion of the left shoulder patient also expresses pain in the shoulder and her bicep whenever performing a pulling or flexion maneuver. Patient does not have any signs of the biceps tear or tendon tear patient is also tender along the coracoid process of the believe more likely muscle strain of these areas no other critical pathology seen on examination of the right shoulder shoulder left shoulder shoulder unaffected General lower extremity: Normal inspection, Nontender, Normal color, Normal ROM , Normal temperature, Normal weight bearing. No: Jayson's sign - Neurological Neuro grossly intact: Yes Cognition: Normal Orientation: AAOx4 [place] Coma Scale Eye Opening: Spontaneous [place] Coma Scale Verbal: Oriented [place] Coma Scale Motor: Obeys Commands [place] Coma Scale Total: 15 Speech: Normal Motor strength normal: LUE, RUE, LLE, RLE Sensory: Normal - Psychological Associated symptoms: Normal affect, Normal mood - Skin Skin Temperature: Warm Skin Moisture: Dry Skin Color: Normal Course - Re-evaluation Re-evalutation: 08/14/18 23:04 -Patient coming in for evaluation of right shoulder pain. X-ray shows calcified tendinitis. Patient x-rays were reviewed with her. Patient examination is consistent with tendinitis or muscle strain. Recommended hot packs warm packs Tylenol Motrin. Patient is understanding patient was discharged home - Vital Signs Vital signs: Temp Pulse Resp BP Pulse Ox 98.6 F 88 17 167/60 H 100 08/14/18 11:08 08/14/18 15:22 08/14/18 15:22 08/14/18 15:22 08/14/18 15:22 Discharge - Discharge Clinical Impression: Right arm pain Disposition: HOME, SELF-CARE Instructions: Arm Pain, Nonspecific ([facility]), Muscle Strain ([facility]), Tendonitis ([facility] ) Additional Instructions: Your evaluation today does not show any signs of fracture or any concerning pathology for your right arm pain. Do believe you have possibly underlying tendinitis or muscle strain. Would recommend ice heat Tylenol and lidocaine patches for pain control. Return to ER symptoms worsen follow-up with your primary care physician. Referrals: RODRIGUEZ GEORGES MD [Primary Care Provider] - Follow up as needed
[2018-08-14 15:26] VITALS: BP 167/60
== END 2018-08-14 15:22 | disposition home or self-care (01) ==
LOC: ER 11:05
DX: M75.31 Calcific tendinitis of right shoulder (principal); I10 Essential (primary) hypertension; E11.9 Type 2 diabetes mellitus without complications; Z88.8 Allergy status to other drugs, medicaments and biological substances; Z88.5 Allergy status to narcotic agent; Z88.0 Allergy status to penicillin; Z91.048 Other nonmedicinal substance allergy status
CPT/HCPCS: 71046; 93005; 93010; 99284

== ENCOUNTER 2019-01-20 21:45 | Emergency (ER) | payer BC ==
[2019-01-20] MEDS ORDERED: BESIFLOXACIN HCL 0.6% OPH SUSP 5 ML BOTTLE OS ONE (22:56)
[2019-01-20] MEDS ORDERED: IPRATROPIUM/ALBUTEROL 0.5-2.5 MG/3 ML AMPUL NEB ONE (22:56)
[2019-01-20] MEDS ORDERED: BESIFLOXACIN HCL 0.6% OPH SUSP 5 ML BOTTLE ONE (23:08)
--- NOTE | 2019-01-20 23:15 | ER Document Report ---
ED General - General Chief Complaint: Productive Cough Stated Complaint: CHEST CONGESTION Time Seen by Provider: 01/20/19 22:46 Primary Care Provider: RODRIGUEZ GEORGES MD [Primary Care Provider] - Follow up as needed Notes: Patient is a pleasant 73-year-old female presents with complaint of cough and congestion and fevers. She says she is adamant fevers for 5 days. T-max is 102 at home. She currently is afebrile. She is noticed some discharge from her left eye that started to occur over the last 24 to 48 hours. She denies wearing contacts. She only wears glasses. She does have history of asthma. She does not smoke. She says that her cough feels as if it should be productive but oftentimes is not productive. She has no abdominal pain. No nausea. No vomiting. No diarrhea. She has chronic leg edema which she does take a water pill for. TRAVEL OUTSIDE OF THE [place] IN LAST 30 DAYS: No - Related Data Allergies/Adverse Reactions: atenolol [Atenolol] Allergy (Severe, Verified 08/14/18 11:05) dapagliflozin [From Farxiga] Allergy (Severe, Verified 08/14/18 11:05) Syncope meperidine HCl [From Demerol] Allergy (Severe, Verified 08/14/18 11:05) oxycodone HCl [From Percodan] Allergy (Severe, Verified 08/14/18 11:05) Penicillins Allergy (Severe, Verified 08/14/18 11:05) saxagliptin [From Onglyza] Allergy (Severe, Verified 08/14/18 11:05) adhesive tape Allergy (Verified 08/14/18 11:05) Past Medical History - Social History Smoking Status: Never Smoker Frequency of alcohol use: None Drug Abuse: None Family History: CAD, DM, Other - chf - Past Medical History Cardiac Medical History: Reports: Hx Hypercholesterolemia, Hx Hypertension Denies: Hx Coronary Artery Disease, Hx Heart Attack Pulmonary Medical History: Denies: Hx Bronchitis, Hx COPD, Hx Pneumonia Comment Only: Hx Asthma - as a child Neurological Medical History: Reports: Hx Cerebrovascular Accident - Left & ri ght-sided lacunar infarct. Denies: Hx Seizures Endocrine Medical History: Reports: Hx Diabetes Mellitus Type 2 Renal/ Medical History: Denies: Hx Peritoneal Dialysis Malignancy Medical History: Reports: Hx Lymphoma GI Medical History: Reports: Hx Gastroesophageal Reflux Disease Musculoskeletal Medical History: Reports Hx Arthritis Psychiatric Medical History: Denies: Hx Depression Past Surgical History: Reports: Hx Cardiac Catheterization - 1996 wake negative, Hx Cardiac Surgery - cardiac cath, Hx Cholecystectomy, Hx Herniorrhaphy, Hx Hysterectomy, Hx Orthopedic Surgery - left fibula, Hx Tonsillectomy - Immunizations Hx Diphtheria, Pertussis, Tetanus Vaccination: Yes Hx Pneumococcal Vaccination: 05/29/16 Review of Systems - Review of Systems Notes: My Normal Review Basic REVIEW OF SYSTEMS: CONSTITUTIONAL : Recent fevers. EENT: Denies eye, ear, throat, or mouth pain or symptoms. Denies nasal or sinus congestion. CARDIOVASCULAR: Denies chest pain. RESPIRATORY: Cough. GASTROINTESTINAL: Denies abdominal pain. Denies nausea, vomiting, or diarrhea. MUSCULOSKELETAL: Denies neck or back pain or joint pain or swelling. SKIN: Denies rash or skin lesions. NEUROLOGICAL: Denies altered mental status or loss of consciousness. Denies headache. Denies weakness or paralysis or loss of use of either side. Denies problems with gait or speech. Denies sensory or motor loss. ALL OTHER SYSTEMS REVIEWED AND NEGATIVE. Physical Exam - Vital signs Vitals: Temp Pulse Resp BP 98.5 F 107 H 18 202/66 H 01/20/19 21:56 01/20/19 21:56 01/20/19 21:56 01/20/19 21:56 - Notes Notes: General Appearance: Well nourished, alert, cooperative, no acute distress, no obvious discomfort. Vitals: reviewed, See vital signs table. Head: no swelling or tenderness to the head Eyes: PERRL, EOMI, right eye is normal-appearing. Left eye has a large amount of yellowish drainage. The conjunctive itself is actually not significantly erythematous. She still is good extraocular motion. There is no hypopyon. Cornea is clear. Mouth: No decreasd moisture Throat: No tonsillar inflammation, No airway obstruction Neck: Supple, no neck tenderness Lungs: No wheezing, No rales, No rhonci, No accessory muscle use, good air exchange bilaterally. Heart: Normal rate, Regular rythm, No murmur, no rub Abdomen: Normal BS, soft, No rigidity, No abdominal tenderness, No guarding, no rebound, no abdominal masses, no organomegaly Extremities: good pulses in all extremities, no swelling or tenderness in the extremities, no edema. Skin: warm, dry, appropriate color, no rash Neuro: speech clear, oriented x 3, normal affect, responds appropriately to questions. Course - Re-evaluation Re-evalutation: 01/21/19 01:36 Patient did have some slight scattered wheezing on initial lung auscultation. This is since cleared with the one breathing treatment. She does have some rales and slight rhonchorous breath sounds in the bases. 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 I did want to give her a dose of Lasix here but patient refuses for me to give her Lasix and says she wants to wait till she gets home to take her on Lasix. I did wean her off oxygen. Oxygen saturation is 93-94%. She still slightly tachycardic at 103. Patient was more tachycardic before receivin g her clonidine. She had missed her earlier dose of clonidine. This may be why she is low but tachycardic. Also she did receive DuoNeb breathing treatment which probably made her tachycardic as well. Patient says that she feels well and does not want to consider admission. She says she wants to go home as she feels improved. I informed her that she must have a very low threshold to return to the ER as her oxygen is at the low end of normal and she is a little tachycardic. Patient agrees that she will have a very low threshold to return to ER if she has any worsening of her symptoms whatsoever. Patient will be discharged home as requested. Dictation of this chart was performed using voice recognition software; therefore, there may be some unintended grammatical errors. - Vital Signs Vital signs: Temp Pulse Resp BP Pulse Ox 99.9 F 107 H 23 H 199/75 H 96 01/20/19 22:59 01/20/19 21:56 01/21/19 01:02 01/21/19 01:02 01/21/19 01:02 - Laboratory Result Diagrams: 01/20/19 23:17 01/20/19 23:52 Laboratory results interpreted by me: 01/20/19 01/20/19 23:17 23:52 Hct 35.8 L RDW 14.7 H Lymphocytes % 8.4 L Monocytes % 19.2 H Absolute Monocytes 1.5 H Glucose 226 H Discharge - Discharge Clinical Impression: Pneumonia Qualifiers: Pneumonia type: due to unspecified organism Laterality: unspecified laterality Lung location: unspecified part of lung Qualified Code(s): J18.9 - Pneumonia, unspecified organism Dyspnea Qualifiers: Dyspnea type: unspecified Qualified Code(s): R06.00 - Dyspnea, unspecified Condition: Stable Disposition: HOME, SELF-CARE Additional Instructions: Your chest x-ray is read as normal however based on your lung auscultation and your recent fevers I suspect you have a pneumonia. I therefore have prescribed you doxycycline. As discussed with you, I also feel that you probably have some fluid in the bases of your lungs based on the way your lungs sound. I recommend giving an extra dose of Lasix here. I do understand you prefer to take your own lasix when you get home. Please make sure you do take your Lasix. Your oxygen level is between 93-94%. This is almost at the level where we would have to keep you in the hospital. Please have a very low threshold to return to ER if you feel like you are having worsening difficulty breathing, recurrent fevers not responding to Tylenol, vomiting, or if you feel that you are worsening in any way. Follow up with your doctor on Tuesday for reevaluation. Please apply the antibiotic eyedrops (Besivance) to your eyes 3 times a day for 7 days. Prescriptions: Doxycycline Hyclate 100 mg PO BID #14 capsule Referrals: RODRIGUEZ GEORGES MD [Primary Care Provider] - 01/23/19
[2019-01-20 23:31] LABS: ABSOLUTE LYMPHOCYTES (AUTO) 0.6 10^3/uL (0.5-4.7); ABSOLUTE MONOCYTES (AUTO) 1.5 10^3/uL (0.1-1.4); ABSOLUTE NEUT (AUTO) 5.5 10^3/uL (1.7-8.2); BASOPHILS % (AUTO) 0.4 % (0-2); EOSINOPHILS % (AUTO) 0.1 % (0-6); HEMATOCRIT 35.8 % (36.0-47.0); HEMOGLOBIN 12.1 g/dL (12.0-15.5); LYMPHOCYTES % (AUTO) 8.4 % (13-45); MEAN CORPUSCULAR HEMOGLOBIN 27.7 pg (27.0-33.4); MEAN CORPUSCULAR HGB CONC 33.6 g/dL (32.0-36.0); MEAN CORPUSCULAR VOLUME 82 fl (80-97); MONOCYTES % (AUTO) 19.2 % (3-13); PLATELET COUNT 196 10^3/uL (150-450); RED BLOOD COUNT 4.35 10^6/uL (3.72-5.28); RED CELL DISTRIBUTION WIDTH 14.7 % (11.5-14.0); SEGMENTED NEUTROPHILS % (AUTO) 71.9 % (42-78); TOTAL CELLS COUNTED % (AUTO) 100 %; WHITE BLOOD COUNT 7.6 10^3/uL (4.0-10.5)
--- NOTE | 2019-01-20 23:46 | RADIOLOGY REPORT (SQ) ---
EXAM DESCRIPTION: XR CHEST 2 VIEWS COMPLETED DATE/TME: 01/20/2019 22:56 CLINICAL HISTORY: 73 years, Female, cough, fever COMPARISON: Prior study from 08/14/2018 NUMBER OF VIEWS: Two TECHNIQUE: Frontal and lateral radiographs of the chest were obtained. LIMITATIONS: None. FINDINGS: Cardiac and mediastinal contours are normal in appearance. Lungs are clear. No pleural effusion or pneumothorax. IMPRESSION: No acute disease. copyright 2010 [employer]- All Rights Reserved
[2019-01-21 00:36] LABS: ANION GAP 11 (5-19); BLOOD UREA NITROGEN 20 mg/dL (7-20); CALCIUM 8.8 mg/dL (8.4-10.2); CARBON DIOXIDE 28 mmol/L (22-30); CHLORIDE 101 mmol/L (98-107); GLUCOSE 226 mg/dL (75-110); POTASSIUM 4.1 mmol/L (3.6-5.0); SODIUM 139.7 mmol/L (137-145)
[2019-01-21] MEDS ORDERED: CLONIDINE HCL 0.2 MG TABLET PO ONE (00:44)
[2019-01-21] MEDS ORDERED: DOXYCYCLINE HYCLATE 100 MG TABLET PO ONE (01:08)
[2019-01-21 02:04] VITALS: BP 194/73
== END 2019-01-21 02:00 | disposition home or self-care (01) ==
LOC: ER 21:45
DX: J18.9 Pneumonia, unspecified organism (principal); R06.00 Dyspnea, unspecified; R05 Cough; R09.89 Other specified symptoms and signs involving the circulatory and respiratory systems; R50.9 Fever, unspecified; R60.0 Localized edema; I10 Essential (primary) hypertension; E11.9 Type 2 diabetes mellitus without complications
CPT/HCPCS: 99285; 36415; 85025; 80048; 71046; J7620

== ENCOUNTER 2019-04-30 08:59 | Emergency (ER) | payer BC, MEDICARE ==
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
[2019-04-30 10:43] VITALS: BP 162/74
== END 2019-04-30 10:43 | disposition home or self-care (01) ==
LOC: ER 08:59
DX: I87.2 Venous insufficiency (chronic) (peripheral) (principal); L98.9 Disorder of the skin and subcutaneous tissue, unspecified; M79.89 Other specified soft tissue disorders; Z87.891 Personal history of nicotine dependence; I10 Essential (primary) hypertension; E11.9 Type 2 diabetes mellitus without complications

== ENCOUNTER 2019-12-21 23:01 | Emergency (ER) | payer BC, MEDICARE ==
[2019-12-22 00:25] LABS: INTERNATIONAL RATION (INR) 1.11; PROTHROMBIN TIME 14.3 SEC (11.4-15.4)
[2019-12-22 00:26] LABS: PARTIAL THROMBOPLASTIN TIME 25.4 SEC (23.5-35.8)
[2019-12-22 00:30] LABS: ABSOLUTE LYMPHOCYTES (AUTO) 0.6 10^3/uL (0.5-4.7); ABSOLUTE NEUT (AUTO) 7.5 10^3/uL (1.7-8.2); BASOPHILS % (AUTO) 0.5 % (0-2); EOSINOPHILS % (AUTO) 0.5 % (0-6); HEMATOCRIT 37.2 % (36.0-47.0); LYMPHOCYTES % (AUTO) 6.8 % (13-45); MEAN CORPUSCULAR HEMOGLOBIN 29.6 pg (27.0-33.4); MEAN CORPUSCULAR HGB CONC 34.8 g/dL (32.0-36.0); MEAN CORPUSCULAR VOLUME 85 fl (80-97); MONOCYTES % (AUTO) 10.6 % (3-13); PLATELET COUNT 137 10^3/uL (150-450); RED BLOOD COUNT 4.37 10^6/uL (3.72-5.28); RED CELL DISTRIBUTION WIDTH 14.6 % (11.5-14.0); SEGMENTED NEUTROPHILS % (AUTO) 81.6 % (42-78); TOTAL CELLS COUNTED % (AUTO) 100 %; WHITE BLOOD COUNT 9.2 10^3/uL (4.0-10.5)
[2019-12-22 00:41] LABS: ALBUMIN 3.8 g/dL (3.5-5.0); ALKALINE PHOSPHATASE 66 U/L (38-126); ANION GAP 6 (5-19); ASPARTATE AMINO TRANSFERASE 27 U/L (14-36); BILIRUBIN,TOTAL 0.9 mg/dL (0.2-1.3); BLOOD UREA NITROGEN 23 mg/dL (7-20); CALCIUM 9.3 mg/dL (8.4-10.2); CARBON DIOXIDE 28 mmol/L (22-30); CHLORIDE 105 mmol/L (98-107); GLUCOSE 186 mg/dL (75-110); POTASSIUM 4.7 mmol/L (3.6-5.0); TOTAL PROTEIN 6.5 g/dL (6.3-8.2)
[2019-12-22] MEDS ORDERED: ACETAMINOPHEN 325 MG TABLET PO ONE (01:05)
[2019-12-22 01:06] LABS: APPEARANCE,URINE CLOUDY; BILIRUBIN,URINE NEGATIVE (NEGATIVE); COLOR,URINE RED; GLUCOSE, URINE NEGATIVE (NEGATIVE); KETONES,URINE NEGATIVE (NEGATIVE); LEUKOCYTE ESTERASE,URINE NEGATIVE (NEGATIVE); NITRITE,URINE NEGATIVE (NEGATIVE); PROTEIN,URINE 100 mg/dL (NEGATIVE); URINE SPECIFIC GRAVITY 1.015; UROBILINOGEN,URINE NEGATIVE mg/dL (<2.0)
[2019-12-22] MEDS ORDERED: ONDANSETRON HCL INJ/PF 4 MG/2 ML SDV IV ONE (01:07)
[2019-12-22] MEDS ORDERED: SULFAMETHOXAZOLE/TRIMETHOPRIM 800-160 MG TABLET PO ONE (02:06)
[2019-12-22] MEDS ORDERED: PHENAZOPYRIDINE HCL 200 MG TABLET PO ONE (02:07)
--- NOTE | 2019-12-22 02:17 | RADIOLOGY REPORT (SQ) ---
INDICATION: low back pain. TECHNIQUE: 5 view(s) of the lumbar spine. Both obliques COMPARISON: None FINDINGS: No evidence of acute displaced fracture. Scoliosis. No anteroposterior subluxation. Osteoarthritis. Vertebral body heights are well-maintained. Aortic calcification without aneurysmal disease. IMPRESSION: No evidence of acute displaced fracture of the lumbar spine. Scoliosis. Osteoarthritis
--- NOTE | 2019-12-22 02:23 | ER Document Report ---
Entered by NEVIN RUSH SCRIBE 12/22/19 0025 Acting as scribe for:DARLENE BARRON MD ED General - General Chief Complaint: Vaginal Bleeding Stated Complaint: FALL,VAGINAL BLEEDING Primary Care Provider: RODRIGUEZ GEORGES MD [Primary Care Provider] - Follow up as needed Information source: Patient Notes: This 74-year-old female presents to the emergency department complaining of vaginal bleeding. Patient states that she believes she has a UTI. Patient reports that her urine is bright red with blood clots. Patient states that she has never had blood in her urine before. Patient said that that she has not had back pain associated with the blood in her urine. Patient reports suprapubic pain. Unfortunately, patient fell on the way to the emergency department today. Patient said that her "legs just gave out" and she fell down her two front steps to mud. Patient reports back pain after fall, chest pain, headache and neck pain. Patient states that she has chest pain every once in a while which comes and goes. Patient said that she has a headache that is worse today. Patient adds that her neck pain is constant and is on the left side but this is a chronic condition. Patient mentions that she is mostly in a recliner at home and only walks a short distance to the bathroom. TRAVEL OUTSIDE OF THE [place] IN LAST 30 DAYS: No - Related Data Allergies/Adverse Reactions: atenolol [Atenolol] Allergy (Severe, Verified 04/30/19 08:59) dapagliflozin [From Farxiga] Allergy (Severe, Verified 04/30/19 08:59) Syncope meperidine HCl [From Demerol] Allergy (Severe, Verified 04/30/19 08:59) oxycodone HCl [From Percodan] Allergy (Severe, Verified 04/30/19 08:59) Penicillins Allergy (Severe, Verified 04/30/19 08:59) saxagliptin [From Onglyza] Allergy (Severe, Verified 04/30/19 08:59) adhesive tape Allergy (Verified 04/30/19 08:59) Past Medical History - General Information source: Patient - Social History Smoking Status: Never Smoker Cigarette use (# per day): No Chew tobacco use (# tins/day): No Lives with: Spouse/Significant other Family History: CAD, DM, Other - chf Patient has suicidal ideation: No Patient has homicidal ideation: No - Past Medical History Cardiac Medical History: Reports: Hx Congestive Heart Failure, Hx Hypercholesterolemia, Hx Hypertension Pulmonary Medical History: Reports: Hx Asthma - as a child Neurological Medical History: Reports: Hx Cerebrovascular Accident - Left & right-sided lacunar infarct Endocrine Medical History: Reports: Hx Diabetes Mellitus Type 2 Malignancy Medical History: Reports: Hx Lymphoma Musculoskeletal Medical History: Reports Hx Arthritis Past Surgical History: Reports: Hx Cardiac Catheterization - 1995 wake negative, Hx Cardiac Surgery - cardiac cath, Hx Cholecystectomy, Hx Herniorrhaphy, Hx Hysterectomy, Hx Orthopedic Surgery - left fibula, Hx Tonsillectomy - Immunizations Hx Diphtheria, Pertussis, Tetanus Vaccination: Yes Hx Pneumococcal Vaccination: 05/29/16 Review of Systems - Review of Systems Constitutional: No symptoms reported EENT: No symptoms reported Cardiovascular: See HPI, Chest pain Respiratory: No symptoms reported Gastrointestinal: See HPI, Abdominal pain Genitourinary: No symptoms reported Female Genitourinary: See HPI, Vaginal bleeding Musculoskeletal: See HPI, Back pain, Neck pain Skin: No symptoms reported Hematologic/Lymphatic: No symptoms reported Neurological/Psychological: No symptoms reported -: Yes All other systems reviewed and negative Physical Exam - Vital signs Vitals: Temp 98.5 F 12/21/19 23:16 - Notes Notes: Physical Exam: General: Alert, appears well. HEENT: Normocephalic. Atraumatic. PERRL. Extraocular movements intact. Oropharynx clear. Neck: Supple. Non-tender. Respiratory: No respiratory distress. Clear and equal breath sounds bilaterally. Cardiovascular: Regular rate and rhythm. Abdominal: Morbidly Obese. Suprapubic tenderness to palpation. No distension. Normal Bowel Sounds. Back: Back pain tenderness to palpation. No CVA tenderness. Extremities: Moves all four extremities. Upper extremities: Normal inspection. Normal ROM. Lower extremities: Normal inspection. No edema. Normal ROM. Neurological: Normal cognition. AAOx4. Normal speech. Psychological: Normal affect. Normal Mood. Skin: Warm. Dry. Normal color. Course - Re-evaluation Re-evalutation: 12/22/19 02:14 Patient resting comfortably not showing any signs of distress at this time. States her nausea and her back pain is better. Patient was given Zofran and IV Tylenol. Patient reports that she has urinary frequency and burning and bladder discomfort with urinating therefore we will add not only antibiotics of Bactrim double strength but also Pyridium 200 mg. Patient will be discharged home on antibiotics and Pyridium. Urine culture has been sent. - Vital Signs Vital signs: Temp Pulse Resp BP Pulse Ox 98.3 F 110 H 20 181/72 H 98 12/21/19 23:24 12/21/19 23:24 12/21/19 23:24 12/21/19 23:24 12/21/19 23:24 - Laboratory Result Diagrams: 12/22/19 00:10 12/22/19 00:10 Laboratory results interpreted by me: 12/22/19 12/22/19 12/22/19 00:10 00:10 00:48 RDW 14.6 H Plt Count 137 L Lymph % (Auto) 6.8 L Seg Neutrophils % 81.6 H BUN 23 H Glucose 186 H Urine Protein 100 H Urine Blood MODERATE H Urine Ascorbic Acid 40 H Patient's urine shows white cells red cells and 3+ bacteria in her urine. Consistent with a hemorrhagic cystitis. 12/22/19 02:22 L elevated blood sugar is 186 consistent with diabetes. - Diagnostic Test Radiology reviewed: Image reviewed, Reports reviewed Radiology results interpreted by me: 12/22/19 02:17 LS-spine shows osteoporosis and diffuse degenerative arthritic changes in lumbar vertebral bodies and. No acute fracture seen narrowed space at L5-S1. Discharge - Discharge Clinical Impression: Hemorrhagic cystitis, Morbid obesity, Low back pain Condition: Good Disposition: HOME, SELF-CARE Additional Instructions: Low Back Pain Three out of every four people will have an episode of disabling back pain during their lifetime. Most commonly the pain is due to straining of the muscles and ligaments in the low back. Usual treatment includes: (1) Rest on a firm surface. Avoid lying on your stomach. (2) Ice pack the painful area. After a few days, gentle heat may be used intermittently to relax the area, or ice packs can be continued. (3) Medication may be needed -- muscle relaxers and antiinflammatory medicines are commonly used. (4) As the back improves, exercises are prescribed to strengthen the back and abdominal muscles. Your doctor will advise you on the proper care for your back at each stage in your recovery. You may be better in a few days -- or healing may take several weeks. If new symptoms of a "herniated disc" (radiation of pain, numbness, or ti ngling down the back of the leg or weakness in the leg) occur, you should be re- examined. Further testing may be necessary.Urinary Tract Infection Your evaluation indicates that you have a urinary tract infection. This is due to germs growing in the bladder. This is a common problem. This infection usually responds quickly to antibiotics. Your antibiotic should be taken exactly as prescribed. Drink plenty of fluids -- three to four quarts a day. Occasionally, a bladder anesthetic will be prescribed to help stop the feeling of urgency until the antibiotic has a chance to clear the infection. This may cause your urine to be dark orange. Certain urine infections require a culture. If the doctor obtained a culture, the results will be back in two days. You should call to see if a change in treatment is needed. A repeat urinalysis after you finish treatment is often recommended. The physician will let you know if further testing is required. Call the doctor if you develop fever, chills, flank pain, inability to urinate, or blood in the urine. Prescriptions: Sulfamethoxazole/Trimethoprim [Bactrim Ds Tablet] 1 each PO BID 10 Days #20 tablet Phenazopyridine HCl [Pyridium 200 mg Tablet] 200 mg PO TID #15 tablet Referrals: RODRIGUEZ GEORGES MD [Primary Care Provider] - Follow up as needed I personally performed the services described in the documentation, reviewed and edited the documentation which was dictated to the scribe in my presence, and it accurately records my words and actions.
[2019-12-22] MEDS ORDERED: PHENAZOPYRIDINE HCL 200 MG TABLET ONE (02:42)
[2019-12-22] MEDS ORDERED: MECLIZINE HCL 25 MG TABLET PO ONE (03:48)
--- NOTE | 2019-12-22 04:22 | RADIOLOGY REPORT (SQ) ---
EXAM DESCRIPTION: CT HEAD WITHOUT IV CONTRAST COMPLETED DATE/TME: 12/22/2019 03:15 CLINICAL HISTORY: 74 years Female, right sided headache/prior CVA/tias COMPARISON: None. TECHNIQUE: No contrast. Coronal and sagittal reformat. This exam was performed according to our departmental dose-optimization program, which includes automated exposure control, adjustment of the mA and/or kV according to patient size and/or use of iterative reconstruction technique. FINDINGS: No hemorrhage or infarct. No mass, mass effect, or midline shift. Atherosclerosis. Diffuse cranial bossing. Empty sella variant. Brain and extra-axial structures appear otherwise intact. IMPRESSION: No acute findings.
--- NOTE | 2019-12-22 04:43 | ER Document Report ---
Doctor's Note Notes: 12/22/19 04:[address] reviewed by this MD. Patient was informed of the results of the head CT. Patient will be discharged home. All questions were answered prior to discharge. Emergency signs and symptoms, reasons to return to the emergency department discussed with patient.
[2019-12-22 04:55] VITALS: BP 172/61
== END 2019-12-22 05:29 | disposition home or self-care (01) ==
LOC: ER 23:01
DX: N30.91 Cystitis, unspecified with hematuria (principal); G44.89 Other headache syndrome; E66.01 Morbid (severe) obesity due to excess calories; H83.03 Labyrinthitis, bilateral; H92.02 Otalgia, left ear; R07.9 Chest pain, unspecified; M54.2 Cervicalgia; R11.0 Nausea; W10.9XXA Fall (on) (from) unspecified stairs and steps, initial encounter; I50.9 Heart failure, unspecified; E78.00 Pure hypercholesterolemia, unspecified; I11.0 Hypertensive heart disease with heart failure; E11.9 Type 2 diabetes mellitus without complications; Z88.0 Allergy status to penicillin; Z88.6 Allergy status to analgesic agent; Z86.73 Personal history of transient ischemic attack (TIA), and cerebral infarction without residual deficits; Z90.49 Acquired absence of other specified parts of digestive tract; Z90.710 Acquired absence of both cervix and uterus
CPT/HCPCS: 99284; 96374; 36415; 87086; 83605; 85025; 85610; 85730; 87088; 80053; 81001; 87186; 72110; 70450; J3490; J2405

== ENCOUNTER 2019-12-22 14:43 | Inpatient (IN) | payer BC, MEDICARE ==
[2019-12-22 15:08] LABS: HEMATOCRIT 37.5 % (36.0-47.0); HEMOGLOBIN 12.9 g/dL (12.0-15.5); MEAN CORPUSCULAR HEMOGLOBIN 29.2 pg (27.0-33.4); MEAN CORPUSCULAR HGB CONC 34.4 g/dL (32.0-36.0); MEAN CORPUSCULAR VOLUME 85 fl (80-97); PLATELET COUNT 167 10^3/uL (150-450); RED BLOOD COUNT 4.42 10^6/uL (3.72-5.28); RED CELL DISTRIBUTION WIDTH 14.6 % (11.5-14.0); WHITE BLOOD COUNT 12.2 10^3/uL (4.0-10.5)
[2019-12-22 15:24] LABS: ALBUMIN 3.7 g/dL (3.5-5.0); ALKALINE PHOSPHATASE 74 U/L (38-126); ANION GAP 9 (5-19); ASPARTATE AMINO TRANSFERASE 36 U/L (14-36); BLOOD UREA NITROGEN 24 mg/dL (7-20); CARBON DIOXIDE 26 mmol/L (22-30); CHLORIDE 104 mmol/L (98-107); CREATINE KINASE 151 U/L (30-135); GLUCOSE 226 mg/dL (75-110); POTASSIUM 4.4 mmol/L (3.6-5.0); TOTAL PROTEIN 6.4 g/dL (6.3-8.2)
[2019-12-22 15:25] LABS: ABSOLUTE LYMPHOCYTES# (MANUAL) 0.6 10^3/uL (0.5-4.7); BASOPHILS % (MANUAL) 0 % (0-2); EOSINOPHILS % (MANUAL) 0 % (0-6); LYMPHOCYTES % (MANUAL) 5 % (13-45); MONOCYTES % (MANUAL) 8 % (3-13); SEGMENTED NEUTROPHILS % (MAN) 87 % (42-78); TOTAL CELLS COUNTED 100
[2019-12-22 15:26] LABS: ANISOCYTOSIS SLIGHT; PLATELET COMMENT ADEQUATE; POLYCHROMASIA SLIGHT
[2019-12-22] MEDS ORDERED: NORMAL SALINE 1000 ML 1,000 ML IV ONE (15:30)
[2019-12-22 16:05] LABS: APPEARANCE,URINE CLOUDY; BILIRUBIN,URINE NEGATIVE (NEGATIVE); COLOR,URINE AMBER; GLUCOSE, URINE NEGATIVE (NEGATIVE); KETONES,URINE NEGATIVE (NEGATIVE); LEUKOCYTE ESTERASE,URINE NEGATIVE (NEGATIVE); NITRITE,URINE POSITIVE (NEGATIVE); PROTEIN,URINE 100 mg/dL (NEGATIVE); URINE SPECIFIC GRAVITY 1.013
[2019-12-22 16:35] LABS: INTERNATIONAL RATION (INR) 1.14; PROTHROMBIN TIME 14.6 SEC (11.4-15.4)
[2019-12-22 16:38] LABS: D-DIMER 1.63 ug/mL (0.00-0.50)
[2019-12-22] MEDS ORDERED: ONDANSETRON HCL INJ/PF 4 MG/2 ML SDV IV ONE (16:42)
[2019-12-22] MEDS ORDERED: FENTANYL CITRATE INJ/PF 100 MCG/2 ML AMPUL IV ONE (16:42)
--- NOTE | 2019-12-22 16:51 | RADIOLOGY REPORT (SQ) ---
EXAM DESCRIPTION: CHEST SINGLE VIEW IMAGES COMPLETED DATE/TIME: 12/22/2019 4:42 pm REASON FOR STUDY: Short of breath, elevated troponin COMPARISON: 03/30/2019. EXAM PARAMETERS: NUMBER OF VIEWS: One view. TECHNIQUE: Single frontal radiographic view of the chest acquired. RADIATION DOSE: NA LIMITATIONS: None. FINDINGS: LUNGS AND PLEURA: No opacities, masses or pneumothorax. No pleural effusion. MEDIASTINUM AND HILAR STRUCTURES: No masses. Contour normal. HEART AND VASCULAR STRUCTURES: Heart normal in size. Normal vasculature. BONES: No acute findings. HARDWARE: None in the chest. OTHER: No other significant finding. IMPRESSION: NO ACUTE RADIOGRAPHIC FINDING IN THE CHEST. TECHNICAL DOCUMENTATION: JOB ID: [id number] [employer]- All Rights Reserved Reading location - IP/workstation name: [email or web address]
--- NOTE | 2019-12-22 17:30 | ER Document Report ---
Entered by LEYDI CABA SCRIBE 12/22/19 1458 Acting as scribe for:MIMI VALIENTE MD ED General - General Chief Complaint: Fever Stated Complaint: FEVER,NAUSEA VOMITING Time Seen by Provider: 12/22/19 14:49 Primary Care Provider: RODRIGUEZ GEORGES MD [Primary Care Provider] - Follow up as needed Mode of Arrival: Medic Information source: Patient, Emergency Med Personnel, [facility] Records Notes: This 74 year old female patient presents to the emergency department today with complaints of back pain, lower abdominal pain, and vomiting which all began this morning according to the patient. The patient states that last night she was [place] out of her house to come to this emergency department to be seen for hematuria when she slipped and fell. Patient was seen and treated here last night, discharged about 10 hours prior to today's arrival. Patient reports that she had no back pain after the fall, claiming that the pain started today, however during last nights visit she complained of back pain and has xrays of her back done which were unremarkable. TRAVEL OUTSIDE OF THE [place] IN LAST 30 DAYS: No - Related Data Allergies/Adverse Reactions: atenolol [Atenolol] Allergy (Severe, Verified 12/22/19 15:59) dapagliflozin [From Farxiga] Allergy (Severe, Verified 12/22/19 15:59) Syncope meperidine HCl [From Demerol] Allergy (Severe, Verified 12/22/19 15:59) oxycodone HCl [From Percodan] Allergy (Severe, Verified 12/22/19 15:59) Penicillins Allergy (Severe, Verified 12/22/19 15:59) saxagliptin [From Onglyza] Allergy (Severe, Verified 12/22/19 15:59) adhesive tape Allergy (Verified 12/22/19 15:59) Past Medical History - General Information source: Patient - Social History Smoking Status: Former Smoker - quit >20 years ago Frequency of alcohol use: None Drug Abuse: None Lives with: Family Family History: CAD, DM, Other - chf - Past Medical History Cardiac Medical History: Reports: Hx Congestive Heart Failure, Hx Hypercholesterolemia, Hx Hypertension Pulmonary Medical History: Reports: Hx Asthma - as a child Neurological Medical History: Reports: Hx Cerebrovascular Accident - Left & right-sided lacunar infarct Endocrine Medical History: Reports: Hx Diabetes Mellitus Type 2 Malignancy Medical History: Reports: Hx Lymphoma Musculoskeletal Medical History: Reports Hx Arthritis Past Surgical History: Reports: Hx Cardiac Catheterization - 1996 wake negative, Hx Cardiac Surgery - cardiac cath, Hx Cholecystectomy, Hx Herniorrhaphy, Hx Hysterectomy, Hx Orthopedic Surgery - left fibula, Hx Tonsillectomy - Immunizations Hx Diphtheria, Pertussis, Tetanus Vaccination: Yes Hx Pneumococcal Vaccination: 05/29/16 Review of Systems - Review of Systems Constitutional: No symptoms reported EENT: No symptoms reported Cardiovascular: No symptoms reported Respiratory: No symptoms reported Gastrointestinal: See HPI, Abdominal pain, Vomiting Genitourinary: No symptoms reported Female Genitourinary: No symptoms reported Musculoskeletal: See HPI, Back pain Skin: No symptoms reported Hematologic/Lymphatic: No symptoms reported Neurological/Psychological: No symptoms reported -: Yes All other systems reviewed and negative Physical Exam - Vital signs Vitals: Resp 29 H 12/22/19 14:48 - General General appearance: Alert In distress: Mild - Patient is nauseous, and complaining of the pain to her low er back. - HEENT Head: Normocephalic, Atraumatic Eyes: Normal Pupils: PERRL Neck: Normal - Respiratory Respiratory status: No respiratory distress Breath sounds: Normal - Cardiovascular Rhythm: Regular, Tachycardia Heart sounds: Normal auscultation Murmur: No - Abdominal Inspection: Morbidly Obese Bowel sounds: Normal Tenderness: Nontender - Back Back: Tender - Very tender to palpate the left lower lumbar muscles going down into the sacral region, and tender over the lower lumbar spinous processes. - Extremities General upper extremity: Normal inspection General lower extremity: Edema - Patient has chronic venous stasis edema with sk in thickening, erythema, and pitting edema to both legs. - Neurological Neuro grossly intact: Yes - Psychological Associated symptoms: Normal affect, Normal mood, Depressed - Skin Skin Temperature: Warm Skin Moisture: Dry Skin Color: Normal Course - Re-evaluation Re-evalutation: 12/22/19 16:29 The patient had an unexpected troponin elevation at 1.78. I did discuss this with the patient to let her know that an elderly female diabetics, sometimes the only sign or symptom with a heart attack is nausea and vomiting. She states she does not have any chest pain at this time, but does feel like she is having some trouble with her breathing. She does seem to be a little bit tachypneic, but is difficult to tell if this is related to her anxiety and depression, or pain, or if she is really short of breath. Her room air pulse ox is 92%. She is almost supine and does not want to try to sit up. I will place her on O2 2 L nasal cannula, and check for d-dimer. 12/22/19 17:48 The d-dimer was elevated at 1.63, CTA chest was done that showed no acute changes. The patient's creatinine today is 1.14, 14 hours earlier it was 0.79. Troponin this afternoon is 1.78, a repeat 2 hours later is 1.26, her BNP is 3060. The urinalysis done just after midnight was nitrite negative leukocyte Estrace negative with too numerous to count WBCs and too numerous to count RBCs and 3+ bacteria. A cath urine this afternoon is nitrite positive (this may be due to the Pyridium she received), leukocyte esterase negative, too numerous to count RBCs with no WBCs reported and 1+ bacteria. At this time her pulse oximetry is 97%, with a heart rate of 104. - Vital Signs Vital signs: Temp Pulse Resp BP Pulse Ox 100.0 F 25 H 154/56 H 93 12/22/19 16:12 12/22/19 17:01 12/22/19 17:01 12/22/19 17:01 - Laboratory Result Diagrams: 12/22/19 14:24 12/22/19 14:24 Laboratory results interpreted by me: 12/22/19 12/22/19 12/22/19 14:24 14:24 14:24 WBC 12.2 H RDW 14.6 H Seg Neuts % (Manual) 87 H Lymphocytes % (Manual) 5 L Abs Neuts (Manual) 10.6 H D-Dimer 1.63 H BUN 24 H Est GFR ( Amer) 57 L Est GFR (MDRD) Non-Af 47 L Glucose 226 H Creatine Kinase 151 H NT-Pro-B Natriuret Pep Urine Protein Urine Blood Urine Nitrite Urine Urobilinogen Urine Ascorbic Acid 12/22/19 12/22/19 15:44 16:36 WBC RDW Seg Neuts % (Manual) Lymphocytes % (Manual) Abs Neuts (Manual) D-Dimer BUN Est GFR ( Amer) Est GFR (MDRD) Non-Af Glucose Creatine Kinase NT-Pro-B Natriuret Pep 3060 H Urine Protein 100 H Urine Blood LARGE H Urine Nitrite POSITIVE H Urine Urobilinogen 2.0 H Urine Ascorbic Acid 40 H - Diagnostic Test Radiology reviewed: Image reviewed, Reports reviewed - EKG Interpretation by Me EKG shows normal: Sinus rhythm, [place], Intervals, QRS Complexes, ST-T Waves Rate: Tachycardia - 114 Voltage: Consistant with LVH When compared to previous EKG there are: No significant change - Consults Dr. Mcqueen Time consulted: 18:00 Consulted provider: other - I discussed the patient's case at length with Dr. Mcqueen the on-call loom fixer supervisor. He is concerned that she has had a non- STEMI and the elevated BNP may be related to non-STEMI. He would like her to be transferred to [facility] to be evaluated for cardiac cath if possible, if they are unable or unwilling to take her at this time, then he thinks she can be managed here at [facility]. Critical Care Note - Critical Care Note Total time excluding time spent on procedures (mins): 45 Discharge - Discharge Clinical Impression: Non-STEMI (non-ST elevated myocardial infarction), Back pain, lumbosacral, Morbid exogenous obesity, Venous stasis Nausea and vomiting Qualifiers: Vomiting type: unspecified Vomiting Intractability: non-intractable Qualified Code(s): R11.2 - Nausea with vomiting, unspecified Urinary tract infection Qualifiers: Urinary tract infection type: site unspecified Hematuria presence: with hematuria Qualified Code(s): N39.0 - Urinary tract infection, site not specified Diabetes Qualifiers: Diabetes mellitus type: type 2 Diabetes mellitus extermination inspector insulin use: with mcc use Diabetes mellitus complication status: without complication Qualified Code(s): E11.9 - Type 2 diabetes mellitus without complications Condition: Stable Disposition: ADMITTED INPATIENT Admitting Provider: Stuart (Hospitalist) Unit Admitted: IMCU Referrals: RODRIGUEZ GEORGES MD [Primary Care Provider] - Follow up as needed I personally performed the services described in the documentation, reviewed and edited the documentation which was dictated to the scribe in my presence, and it accurately records my words and actions.
--- NOTE | 2019-12-22 17:40 | RADIOLOGY REPORT (SQ) ---
EXAM DESCRIPTION: CTA CHEST IMAGES COMPLETED DATE/TIME: 12/22/2019 5:26 pm REASON FOR STUDY: Short of breath, elevated d-dimer, elevated tropon COMPARISON: 11/05/2013. TECHNIQUE: CT scan of the chest performed using helical scanning technique with dynamic intravenous contrast injection. Images reviewed with lung, soft tissue and bone windows. Reconstructed coronal and sagittal MPR images reviewed. Additional 3 dimensional post-processing performed to develop Maximal Intensity Projection images (MT P). All images stored on PACS. All CT scanners at this facility use dose modulation, iterative reconstruction, and/or weight based d osing when appropriate to reduce radiation dose to as low as reasonably achievable (ALARA). [facility]: Dose Right [facility]: CareDose [facility]: Dose Right [facility]: Teradose 4D [facility]: Rollerscoot CONTRAST TYPE AND DOSE: contrast/concentration: Isovue 350.00 mg/ml; Total Contrast Delivered: 74.0 ml; Total Saline Delivered: 80.0 ml Contrast bolus adequate for pulmonary arteries and aorta. RENAL FUNCTION: BUN 24 creatinine 1.14. RADIATION DOSE: CT Rad equipment meets quality standard of care and radiation dose reduction techniq ues were employed. CTDIvol: 14.9 - 41.2 mGy. DLP: 1298 mGy-cm. . LIMITATIONS: None. FINDINGS: LUNGS AND PLEURA: Scattered atelectasis/ scarring in the lung bases. No masses, infiltrat es, or pneumothorax. No pleural effusions or pleural calcifications. AORTA AND GREAT VESSELS: No aneurysm. No dissection. HEART: No pericardial effusion. No significant coronary artery calcifications. PULMONARY ARTERIES: No emboli visualized in the main pulmonary arteries or the segmental branches. HILAR AND MEDIASTINAL STRUCTURES: Mediastinal adenopathy with mildly enlarged precarinal, subcarinal, left hilar, and left aorta pulmonary window lymph nodes. Lymph nodes measure up to 1.5 cm HARDWARE: None in the chest. UPPER ABDOMEN: No significant findings. Limited exam. THYROID AND OTHER SOFT TISSUES: No masses. No adenopathy. BONES: No acute or significant finding. Degenerative changes in the spine. 3D MIPS: Confirm above findings. OTHER: No other significant finding. IMPRESSION: 1. NORMAL CTA OF THE CHEST. NO PULMONARY EMBOLI. 2. SCATTERED ATELECTASIS/SCARRING IN THE LUNG BASES. 3. MILD MEDIASTINAL AND LEFT HILAR ADENOPATHY. ETIOLOGY AND SIGNIFICANCE NOT APPARENT. COMMENT: Quality ID # [id number]: Final reports with documentation of one or more dose reduction techniques (e.g., Automated exposure control, adjustment of the mA and/or kV according to patient size, use of iterative reconstruction technique) TECHNICAL DOCUMENTATION: JOB ID: [id number] 2010 [email or web address]- All Rights Reserved Reading location - IP/workstation name: [email or web address]
[2019-12-22] MEDS ORDERED: ACETAMINOPHEN 325 MG TABLET PO PRN (19:25)
[2019-12-22] MEDS ORDERED: NITROGLYCERIN 0.4 MG/TAB 25 TAB/BOTTLE SL PRN (19:25)
[2019-12-22] MEDS ORDERED: HEPARIN SOD (PORCINE) 1,000 UNIT/ML 10 ML VIAL IV ONE (19:25)
[2019-12-22] MEDS ORDERED: HEPARIN SODIUM,PORCINE/D5W 25,000 UNIT/250 ML RTUINJ IV PRN (19:25)
[2019-12-22] MEDS ORDERED: MAG HYDROX/AL HYDROX/SIMETH SUSP 30 ML UDCUP PO PRN (19:25)
[2019-12-22] MEDS ORDERED: ASPIRIN 81 MG TABLET, CHEWABLE PO ONE (20:00)
[2019-12-22] MEDS ORDERED: CEFTRIAXONE 1 GM/D5W RTU 1 GM/50 ML RTUPB IV ONE (20:00)
[2019-12-22] MEDS ORDERED: CLOPIDOGREL BISULFATE 75 MG TABLET PO ONE (20:00)
[2019-12-22 20:11] LABS: CHOLESTEROL 119.26 mg/dL (0-200); TRIGLYCERIDES 166 mg/dL (<150)
[2019-12-22 20:13] LABS: HEMATOCRIT 34.4 % (36.0-47.0); HEMOGLOBIN 11.8 g/dL (12.0-15.5); MEAN CORPUSCULAR HEMOGLOBIN 29.4 pg (27.0-33.4); MEAN CORPUSCULAR HGB CONC 34.5 g/dL (32.0-36.0); MEAN CORPUSCULAR VOLUME 85 fl (80-97); PLATELET COUNT 144 10^3/uL (150-450); RED BLOOD COUNT 4.02 10^6/uL (3.72-5.28); RED CELL DISTRIBUTION WIDTH 14.4 % (11.5-14.0); WHITE BLOOD COUNT 12.3 10^3/uL (4.0-10.5)
[2019-12-22 20:17] LABS: INTERNATIONAL RATION (INR) 1.23; PROTHROMBIN TIME 15.6 SEC (11.4-15.4)
[2019-12-22 20:18] LABS: PARTIAL THROMBOPLASTIN TIME 29.1 SEC (23.5-35.8)
[2019-12-22 20:22] LABS: DIRECT LDL 63 mg/dL (<100)
[2019-12-22 20:23] LABS: VLDL CHOLESTEROL 33.2 mg/dL (10-31)
[2019-12-22 20:34] LABS: ABSOLUTE LYMPHOCYTES# (MANUAL) 0.7 10^3/uL (0.5-4.7); ABSOLUTE MONOCYTES # (MANUAL) 0.4 10^3/uL (0.1-1.4); BAND NEUTROPHILS % (MANUAL) 3 % (3-5); BASOPHILS % (MANUAL) 0 % (0-2); EOSINOPHILS % (MANUAL) 0 % (0-6); LYMPHOCYTES % (MANUAL) 6 % (13-45); MONOCYTES % (MANUAL) 3 % (3-13); RBC MORPHOLOGY COMMENT NORMO-CYTIC/CHROMIC; SEGMENTED NEUTROPHILS % (MAN) 88 % (42-78); TOTAL CELLS COUNTED 100
[2019-12-22 20:35] LABS: PLATELET COMMENT ADEQUATE
[2019-12-22] MEDS ORDERED: CLONIDINE HCL 0.2 MG TABLET PO ONE (20:45)
[2019-12-22] MEDS ORDERED: ATORVASTATIN CALCIUM 80 MG TABLET PO SCH (22:00)
[2019-12-22] MEDS ORDERED: HEPARIN SOD (PORCINE) 1,000 UNIT/ML 10 ML VIAL IV PRN (22:27)
[2019-12-22] MEDS: CLONIDINE HCL 0.2 MG TABLET PO SCH (23:33)
[2019-12-23] MEDS ORDERED: DEXTROSE 50%-WATER SYRINGE 12.5 GM/25 ML DOSE IV PRN (02:30)
[2019-12-23] MEDS ORDERED: DEXTROSE 40% GEL 15 GM TUBE X 2 PO PRN (02:30)
[2019-12-23] MEDS ORDERED: GLUCAGON,HUMAN RECOMB 1 MG INJ IM PRN (02:30)
[2019-12-23] MEDS ORDERED: DEXTROSE 40% GEL 15 GM TUBE PO PRN (02:30)
[2019-12-23] MEDS ORDERED: DEXTROSE 50%-WATER SYRINGE 25 GM/50 ML DOSE IV PRN (02:30)
[2019-12-23] MEDS: CLONIDINE HCL 0.2 MG TABLET PO SCH ×2 (06:32→12:43)
--- NOTE | 2019-12-23 08:14 | PDOC CONSULTATION ---
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 According to the emergency room note, she came in for abdominal and back pain and in the ER was found to have a UTI, elevated troponin as well as elevated proBNP. She was also tachycardic. This morning she is resting in bed on a heparin drip. The patient states that she was in her usual state of health until yesterday when she developed an episode of shortness of breath associated with a feeling of "an elephant sitting on my chest". The episode lasted for 45 minutes and was associated with palpitations but no diaphoresis, syncope or presyncope. She denies prior history of coronary artery disease. EKG on presentation was negative for STEMI however she does have some nonspecific ST-T wave changes. Physical exam on 12/23/2019: GENERAL: Pleasant and conversational. Obese. Oriented x3 with normal mood. Not in acute distress. Well groomed and well developed. HEENT: Normocephalic, atraumatic. Pupils equal. Sclerae anicteric. Oropharynx moist. NECK: No JVD. No carotid bruits. LUNGS: Clear to auscultation bilaterally. Normal respiratory effort without the use of accessory muscles or intercostal retractions. CARDIOVASCULAR: Regular rate and rhythm, normal S1 and S2 without murmurs, rubs, or gallops. PMI not displaced. ABDOMEN: Obese. Examination for organomegaly is compromised because of her obesity. EXTREMITIES: 1+ pitting edema bilaterally with venous stasis changes bilaterally. Very difficult to palpate distal pulses due to her body habitus. SKIN: No lesions or rashes. MUSCULOSKELETAL: No chest tenderness to palpation. NEUROLOGIC: Nonfocal. No gross sensory or motor deficits bilateral upper or lower extremities. Past Medical History Cardiac Medical History: Reports: Congestive Heart Failure, Hyperlipidema, Hypertension Denies: Coronary Artery Disease, Myocardial Infarction Pulmonary Medical History: Reports: Asthma - as a child Denies: Bronchitis, Chronic Obstructive Pulmonary Disease (COPD), Pneumonia Neurological Medical History: Denies: Seizures Endocrine Medical History: Reports: Diabetes Mellitus Type 2 Malignancy Medical History: Reports: Lymphoma GI Medical History: Denies: Gastroesophageal Reflux Disease Musculoskeltal Medical History: Reports: Arthritis Psychiatric Medical History: Denies: Depression Hematology: Denies: Anemia Past Surgical History Past Surgical History: Reports: Cardiac Catheterization - 1995 wake negative, Cholecystectomy, Herniorrhaphy, Hysterectomy, Orthopedic Surgery - left fibula, Tonsillectomy Social History Lives with: Family Smoking Status: Former Smoker Frequency of Alcohol Use: None Hx Recreational Drug Use: No Drugs: None Hx Prescription Drug Abuse: No Family History Family History: CAD, DM, Other - chf Parental Family History Reviewed: Yes Children Family History Reviewed: Yes Sibling(s) Family History Reviewed.: Yes Medication/Allergy Home Medications: Clonidine HCl [Catapres 0.2 mg Tablet] 0.2 mg PO Q8 06/12/18 Clopidogrel Bisulfate [Plavix 75 mg Tablet] 75 mg PO DAILY 06/12/18 Furosemide [Lasix 40 mg Tablet] 40 mg PO DAILY 06/12/18 Insulin Degludec [Tresiba Flextouch U-200] 80 units SQ DAILY 06/12/18 Potassium Chloride 10 meq PO DAILY 06/12/18 Simvastatin 40 mg PO QHS 06/12/18 Vit A/Vit C/Vit E/Zinc/Copper [Preservision Areds Softgel] 1 cap PO BID 06/12/18 Dulaglutide [Trulicity] 1.5 mg SQ TU@1000 03/30/19 Insulin Aspart [Novolog Flexpen] 0 unit SUBCUT .SLD SCALE MDD 100 units 03/31/19 Insulin Aspart [Novolog Flexpen] 20 unit SUBCUT AC 03/31/19 Losartan Potassium [Cozaar 50 mg Tablet] 100 mg PO DAILY 03/31/19 Levofloxacin [Levaquin 500 mg Tablet] 500 mg PO DAILY #10 tablet 04/03/19 Meclizine HCl [Antivert 25 mg Tablet] 25 mg PO TID PRN #21 tablet 12/22/19 Phenazopyridine HCl [Pyridium 200 mg Tablet] 200 mg PO TID #15 tablet 12/22/19 Sulfamethoxazole/Trimethoprim [Bactrim Ds Tablet] 1 each PO BID 10 Days #20 tablet 12/22/19 Allergies/Adverse Reactions: atenolol [Atenolol] Allergy (Severe, Verified 12/22/19 15:59) dapagliflozin [From Farxiga] Allergy (Severe, Verified 12/22/19 15:59) Syncope meperidine HCl [From Demerol] Allergy (Severe, Verified 12/22/19 15:59) oxycodone HCl [From Percodan] Allergy (Severe, Verified 12/22/19 15:59) Penicillins Allergy (Severe, Verified 12/22/19 15:59) saxagliptin [From Onglyza] Allergy (Severe, Verified 12/22/19 15:59) adhesive tape Allergy (Verified 12/22/19 15:59) Physical Exam Vital Signs: Temp Pulse Resp BP Pulse Ox 98.5 F 81 20 128/38 H 100 12/23/19 03:11 12/23/19 03:11 12/23/19 03:11 12/23/19 03:11 12/23/19 03:11 Intake & Output 12/22/19 12/23/19 12/24/19 06:59 06:59 06:59 Intake Total 1357 Output Total 100 Balance 1257 Weight 132.8 kg Results Laboratory Results: 12/22/19 19:59 12/22/19 14:24 12/22/19 12/22/19 12/22/19 14:24 14:24 14:24 WBC 12.2 H RBC 4.42 Hgb 12.9 Hct 37.5 MCV 85 MCH 29.2 MCHC 34.4 RDW 14.6 H Plt Count 167 Seg Neutrophils % Not Reportable Sodium 139.2 Potassium 4.4 Chloride 104 Carbon Dioxide 26 Anion Gap 9 BUN 24 H Creatinine 1.14 Est GFR ( Amer) 57 L Glucose 226 H Calcium 9.0 Total Bilirubin 1.0 AST 36 Alkaline Phosphatase 74 Total Protein 6.4 Albumin 3.7 Triglycerides 166 H Cholesterol 119.26 LDL Cholesterol Direct 63 VLDL Cholesterol 33.2 H HDL Cholesterol 30 L TSH Urine Color Urine Appearance Urine pH Ur Specific [place] Urine Protein Urine Glucose (UA) Urine Ketones Urine Blood Urine Nitrite Ur Leukocyte Esterase Urine RBC (Auto) 12/22/19 12/22/19 12/22/19 14:24 15:44 19:59 WBC 12.3 H RBC 4.02 Hgb 11.8 L Hct 34.4 L MCV 85 MCH 29.4 MCHC 34.5 RDW 14.4 H Plt Count 144 L Seg Neutrophils % Not Reportable Sodium Potassium Chloride Carbon Dioxide Anion Gap BUN Creatinine Est GFR ( Amer) Glucose Calcium Total Bilirubin AST Alkaline Phosphatase Total Protein Albumin Triglycerides Cholesterol LDL Cholesterol Direct VLDL Cholesterol HDL Cholesterol TSH 0.57 Urine Color ANIYAH Urine Appearance CLOUDY Urine pH 5.0 Ur Specific [place] 1.013 Urine Protein 100 H Urine Glucose (UA) NEGATIVE Urine Ketones NEGATIVE Urine Blood LARGE H Urine Nitrite POSITIVE H Ur Leukocyte Esterase NEGATIVE Urine RBC (Auto) >182 12/22/19 12/22/19 12/22/19 14:24 14:24 16:36 Creatine Kinase 151 H Troponin I 1.780 1.260 NT-Pro-B Natriuret Pep 12/22/19 12/22/19 12/23/19 16:36 22:17 03:01 Creatine Kinase Troponin I 1.480 1.670 NT-Pro-B Natriuret Pep 3060 H Impressions: Chest X-Ray 12/22/19 16:29 IMPRESSION: NO ACUTE RADIOGRAPHIC FINDING IN THE CHEST. Chest/Abdomen CTA 12/22/19 16:41 IMPRESSION: 1. NORMAL CTA OF THE CHEST. NO PULMONARY EMBOLI. 2. SCATTERED ATELECTASIS/SCARRING IN THE LUNG BASES. 3. MILD MEDIASTINAL AND LEFT HILAR ADENOPATHY. ETIOLOGY AND SIGNIFICANCE NOT APPARENT. 12/22/19 19:59 12/22/19 14:24 MCV 85 fl (80-97) 12/22/19 19:59 MCH 29.4 pg (27.0-33.4) 12/22/19 19:59 MCHC 34.5 g/dL (32.0-36.0) 12/22/19 19:59 RDW 14.4 % (11.5-14.0) H 12/22/19 19:59 Seg Neutrophils % Not Reportable 12/22/19 19:59 Chloride 104 mmol/L (98-107) 12/22/19 14:24 Carbon Dioxide 26 mmol/L (22-30) 12/22/19 14:24 Anion Gap 9 (5-19) 12/22/19 14:24 Est GFR ( Amer) 57 (>60) L 12/22/19 14:24 Glucose 226 mg/dL (75-110) H 12/22/19 14:24 Calcium 9.0 mg/dL (8.4-10.2) 12/22/19 14:24 Total Bilirubin 1.0 mg/dL (0.2-1.3) 12/22/19 14:24 AST 36 U/L (14-36) 12/22/19 14:24 Alkaline Phosphatase 74 U/L (38-126) 12/22/19 14:24 Total Protein 6.4 g/dL (6.3-8.2) 12/22/19 14:24 Albumin 3.7 g/dL (3.5-5.0) 12/22/19 14:24 Triglycerides 166 mg/dL (<150) H 12/22/19 14:24 Cholesterol 119.26 mg/dL (0-200) 12/22/19 14:24 LDL Cholesterol Direct 63 mg/dL (<100) 12/22/19 14:24 VLDL Cholesterol 33.2 mg/dL (10-31) H 12/22/19 14:24 HDL Cholesterol 30 mg/dL (>40) L 12/22/19 14:24 TSH 0.57 uIU/mL (0.47-4.68) 12/22/19 14:24 Urine Color ANIYAH 12/22/19 15:44 Urine Appearance CLOUDY 12/22/19 15:44 Urine pH 5.0 (5.0-9.0) 12/22/19 15:44 Ur Specific [place] 1.013 12/22/19 15:44 Urine Protein 100 mg/dL (NEGATIVE) H 12/22/19 15:44 Urine Glucose (UA) NEGATIVE mg/dL (NEGATIVE) 12/22/19 15:44 Urine Ketones NEGATIVE mg/dL (NEGATIVE) 12/22/19 15:44 Urine Blood LARGE (NEGATIVE) H 12/22/19 15:44 Urine Nitrite POSITIVE (NEGATIVE) H 12/22/19 15:44 Ur Leukocyte Esterase NEGATIVE (NEGATIVE) 12/22/19 15:44 Urine RBC (Auto) >182 /HPF 12/22/19 15:44 12/22/19 12/22/19 12/22/19 14:24 14:24 16:36 Creatine Kinase 151 H Troponin I 1.780 1.260 NT-Pro-B Natriuret Pep 12/22/19 12/22/19 12/23/19 16:36 22:17 03:01 Creatine Kinase Troponin I 1.480 1.670 NT-Pro-B Natriuret Pep 3060 H Current Medication List Generic Name Dose Route Start Last Admin Trade Name Freq PRN Reason Stop Dose Admin Acetaminophen 650 mg 12/22/19 19:25 12/22/19 20:17 Tylenol 325 Mg Tablet PO 01/21/20 19:24 650 mg Q4HP PRN Administration FOR HEADACHE Al Hydrox/Mg Hydrox/Simethicone 30 ml 12/22/19 19:25 Maalox Plus Susp 30 Udcup PO 01/21/20 19:24 Q4HP PRN HEARTBURN Aspirin 324 mg 12/23/19 10:00 Aspirin 81 Mg Chewable Tablet PO 01/22/20 09:59 DAILY ZACH Atorvastatin Calcium 80 mg 12/22/19 22:00 12/22/19 22:31 Lipitor 80 Mg Tablet PO 01/21/20 21:59 80 mg QHS ZACH Administration Clonidine 0.2 mg 12/23/19 00:00 12/23/19 06:32 Catapres 0.2 Mg Tablet PO 01/22/20 00:00 0.2 mg Q6 ZACH Administration Clopidogrel Bisulfate 75 mg 12/23/19 10:00 Plavix 75 Mg Tablet PO 01/22/20 09:59 DAILY ZACH Dextrose 12.5 gm 12/23/19 02:30 Dextrose Inj 50% Syringe (25 Gm/50 Ml) IV 01/22/20 02:29 PRN PRN FOR BG 50-69 IN ALERT PATIENT Protocol Dextrose 25 gm 12/23/19 02:30 Dextrose Inj 50% Syringe (25 Gm/50 Ml) IV 01/22/20 02:29 PRN PRN Protocol Glucagon 1 mg 12/23/19 02:30 Glucagen Inj 1 Mg Vial IM 01/22/20 02:29 PRN PRN EVALUATE FOR BG < 70 Protocol Glucose 15 gm 12/23/19 02:30 Glutose 40% Gel 15 Gm Tube PO 01/22/20 02:29 PRN PRN FOR BG 50-69 IN ALERT PATIENT Protocol Glucose 30 gm 12/23/19 02:30 Glutose 40% Gel 15 Gm Tube PO 01/22/20 02:29 PRN PRN FOR BG < 50 IN ALERT PATIENT Protocol Heparin Sodium (Porcine) 0 - 12,000 unit 12/22/19 22:27 Heparin Inj 1,000 Unit/Ml 10 Ml Vial IV 01/21/20 22:26 .BOLUS PER PROTOCOL PRN RESPOND TO aPTT VALUE Protocol Heparin Sodium/Dextrose 25,000 unit in 250 mls @ 0 mls/hr 12/22/19 19:25 12/23/19 04:45 Heparin Rtu 25,000 Unit/250 Ml D5w Premix IV 01/21/20 19:24 6.01 mls/hr CONTINUOUS PRN 6.01 mls/hr THIS MED IS NOT "PRN" Titration Protocol Titrate Ceftriaxone Sodium/Dextrose 1 gm in 50 mls @ 100 mls/hr 12/23/19 22:00 Rocephin Rtu 1 Gm/D5w 50 Ml Premix IV 12/30/19 21:59 QHS ZACH Insulin Human Lispro 0 - 12 unit 12/23/19 08:00 Humalog Insulin 100 Unit/1 Ml 3 Ml Vial SUBCUT 01/22/20 07:59 ACHS [facility] Protocol Nitroglycerin 1 tab 12/22/19 19:25 Nitrostat 0.4 Mg (1/150 Gr) Tabs 25/Bottle SL Q5MP PRN FOR CHEST PAIN Sodium Chloride 2.5 ml 12/22/19 22:00 12/23/19 05:24 Saline Flush 2.5 Ml Monoject Prefil Syrin IV 01/21/20 21:59 Not Given Q8 ZACH Discontinued Medications Generic Name Dose Route Start Last Admin Trade Name Freq PRN Reason Stop Dose Admin Aspirin 324 mg 12/22/19 20:00 12/22/19 20:16 Aspirin 81 Mg Chewable Tablet PO 12/22/19 20:01 324 mg NOW ONE Administration Clonidine 0.2 mg 12/22/19 20:45 12/22/19 21:28 Catapres 0.2 Mg Tablet PO 12/22/19 20:46 0.2 mg NOW ONE Administration Clopidogrel Bisulfate 75 mg 12/22/19 20:00 12/22/19 20:17 Plavix 75 Mg Tablet PO 12/22/19 20:01 75 mg NOW ONE Administration Fentanyl Citrate 25 mcg 12/22/19 16:42 12/22/19 16:55 Sublimaze Inj/Pf 100 Mcg/2 Ml Ampule IV 12/22/19 16:43 25 mcg NOW ONE Administration Heparin Sodium (Porcine) 4,000 unit 12/22/19 19:25 12/22/19 21:21 Heparin Inj 1,000 Unit/Ml 10 Ml Vial IV 12/22/19 19:26 4,000 units NOW ONE Administration Sodium Chloride 1,000 mls @ 0 mls/hr 12/22/19 15:30 12/22/19 16:59 Nacl 0.9% 1000 Ml Iv Soln IV 12/22/19 15:31 Infused BOLUS ONE Infusion Wide Open Ceftriaxone Sodium/Dextrose 1 gm in 50 mls @ 100 mls/hr 12/22/19 20:00 12/22/19 22:31 Rocephin Rtu 1 Gm/D5w 50 Ml Premix IV 12/22/19 20:29 100 mls/hr NOW ONE 100 mls/hr Administration Ondansetron HCl 8 mg 12/22/19 16:42 12/22/19 16:55 Zofran Inj/Pf 4 Mg/2 Ml Sdv IV 12/22/19 16:43 8 mg NOW ONE Administration Assessment & Plan - Diagnosis (1) Non-STEMI (non-ST elevated myocardial infarction) Is this a current diagnosis for this admission?: Yes Plan: 74-year-old female who was in her usual state of health until yesterday when she developed a 45-minute episode of shortness of breath and a feeling of "an elepha nt sitting on my chest" who has a mildly elevated troponin and elevated proBNP. At this point she is appropriately on a heparin drip and on Plavix. Unfortunately this institution does not have the capabilities to care for this patient therefore I recommend transfer to a bigger facility with [employer] [facility] capabilities. She is currently hemodynamically stable and without clinical evidence of heart failure. She remains angina free at this time. Of note, I discussed the case with the patient's hospitalist and gave her my recommendations via phone conversation. Recommendations: -Continue with current medical management for now. -We will defer to the accepting facility initiation of beta-sharan. -Keep patient n.p.o. for now. -Please call [phone] with questions or concerns.
[2019-12-23] MEDS: INSULIN LISPRO 100 UNIT/ML 3 ML VIAL SUBCUT SCH ×2 (08:21→12:17)
[2019-12-23] MEDS ORDERED: CLOPIDOGREL BISULFATE 75 MG TABLET PO SCH (10:00)
[2019-12-23] MEDS ORDERED: ASPIRIN 81 MG TABLET, CHEWABLE PO SCH (10:00)
--- NOTE | 2019-12-23 10:24 | EKG REPORT ---
SEVERITY:- ABNORMAL ECG - SINUS TACHYCARDIA ANTERIOR Q WAVES, POSSIBLY DUE TO LVH : Confirmed by: Gabi Peraza 23-Dec-2019 10:23:50
--- NOTE | 2019-12-23 12:19 | H&P/Discharge Summary ---
Discharge Summary Admission Date/PCP: 12/22/19 19:37 RODRIGUEZ GEORGES MD Discharge Date: 12/23/19 Resuscitation Status: Full Code Consulting Provider: Dr. Mcqueen - Discharge Diagnosis (1) Non-STEMI (non-ST elevated myocardial infarction) Is this a current diagnosis for this admission?: Yes (2) Diabetes Is this a current diagnosis for this admission?: Yes (3) Morbid exogenous obesity Is this a current diagnosis for this admission?: Yes (4) UTI (urinary tract infection) Is this a current diagnosis for this admission?: Yes (5) Venous stasis Is this a current diagnosis for this admission?: Yes (6) Elevated brain natriuretic peptide (BNP) level Is this a current diagnosis for this admission?: Yes Allergies/Adverse Reactions: atenolol [Atenolol] Allergy (Severe, Verified 12/22/19 15:59) dapagliflozin [From Farxiga] Allergy (Severe, Verified 12/22/19 15:59) Syncope meperidine HCl [From Demerol] Allergy (Severe, Verified 12/22/19 15:59) oxycodone HCl [From Percodan] Allergy (Severe, Verified 12/22/19 15:59) Penicillins Allergy (Severe, Verified 12/22/19 15:59) saxagliptin [From Onglyza] Allergy (Severe, Verified 12/22/19 15:59) adhesive tape Allergy (Verified 12/22/19 15:59) History of Present Illness Admission Date/PCP: 12/22/19 19:37 RODRIGUEZ GEORGES MD History of Present Illness: SUJATA ROMAN is a 74 year old female This patient presents to the emergency room with complaints of abdominal and meenu k pain. She was found to have a urinary tract infection. As part of the ER was on work-up she was also found to have an elevated troponin of 1.78. EKG on presentation was negative for STEMI although she did have some nonspecific ST-T wave changes. She was advised to be transferred to another hospital as patient will need a cardiac catheterization. She did complain of an episode of shortness of breath associated with a feeling of an elephant sitting on her chest which lasted about 45minutes was associated with palpitations but no other significant complaints. She denies any prior history of coronary artery disease. She did have an echocardiogram done in 2019 that revealed grossly intact ejection fraction. Patient was started on ceftriaxone for urinary tract infection. Cultures are currently pending. Patient was also noted to have a hypertensive emergency and she was treated with clonidine. Beta-sharan is currently not started yet. Patient continues on heparin drip, atorvastatin, aspirin as well as Plavix. The plan is to transfer her to [facility] and I have talked to Dr. Crocker who has graciously accepted this patient for transfer. Patient is being kept n.p.o. 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 GI Medical History: Denies: Gastroesophageal Reflux Disease Musculoskeltal Medical History: Reports: Arthritis Psychiatric Medical History: Denies: Depression Hematology: Denies: Anemia Past Surgical History Past Surgical History: Reports: Cardiac Catheterization - 1995 wake negative, Cholecystectomy, Herniorrhaphy, Hysterectomy, Orthopedic Surgery - left fibula, Tonsillectomy Social History Information Source: Patient Lives with: Family Smoking Status: Former Smoker Frequency of Alcohol Use: None Hx Recreational Drug Use: No Drugs: None Hx Prescription Drug Abuse: No - Advance Directive Resuscitation Status: Full Code Family History Family History: CAD, DM, Other - chf Parental Family History Reviewed: No Children Family History Reviewed: No Sibling(s) Family History Reviewed.: Yes Review of Systems Constitutional: ABSENT: as per HPI, anorexia, chills, fatigue, fever(s), headache(s), night sweats, weakness, weight gain, weight loss, other Eyes: ABSENT: visual disturbances Nose, Mouth, and Throat: ABSENT: as per HPI, headache(s), mouth pain, sore throat, vertigo, other Cardiovascular: PRESENT: chest pain, edema, palpitations Respiratory: ABSENT: cough, dyspnea, hemoptysis Gastrointestinal: ABSENT: as per HPI, abdominal pain, bloating, coffee ground emesis, constipation, diarrhea, dysphagia, heartburn, hematemesis, hematochezia, melena, nausea, vomiting, other Genitourinary: PRESENT: hematuria Musculoskeletal: PRESENT: back pain Integumentary: PRESENT: erythema Neurological: ABSENT: as per HPI, abnormal gait, abnormal movements, abnormal speech, confusion, convulsions, dizziness, focal weakness, frequent falls, lack of coordination, memory loss, numbness, paresthesias, restless legs, syncope, tingling, tremor(s), vertigo, weakness, other Physical Exam Vital Signs: Temp Pulse Resp BP Pulse Ox 98.9 F 82 19 126/38 H 98 12/23/19 08:08 12/23/19 08:08 12/23/19 08:08 12/23/19 08:08 12/23/19 08:08 Intake & Output 12/22/19 12/23/19 12/24/19 06:59 06:59 06:59 Intake Total 1357 Output Total 100 Balance 1257 Weight 132.8 kg General appearance: PRESENT: no acute distress, morbidly obese, well-developed, well-nourished Head exam: PRESENT: atraumatic Eye exam: PRESENT: PERRLA Neck exam: PRESENT: full ROM. ABSENT: JVD, tenderness Respiratory exam: PRESENT: clear to auscultation reynold, unlabored. ABSENT: rales, rhonchi, wheezes Cardiovascular exam: PRESENT: RRR, +S1, +S2 GI/Abdominal exam: PRESENT: normal bowel sounds, soft. ABSENT: distended, guard ing, mass, organolmegaly, rebound, tenderness Rectal exam: PRESENT: deferred Extremities exam: PRESENT: +1 edema, other - venous stasis bilaterally Neurological exam: PRESENT: alert, awake, oriented to person, oriented to place, oriented to time, oriented to situation, CN II-XII grossly intact. ABSENT: motor sensory deficit Psychiatric exam: PRESENT: appropriate affect Skin exam: PRESENT: other - small erythematous rashes, non vesicular on R hand Results Laboratory Results: 12/22/19 19:59 12/22/19 14:24 12/22/19 12/22/19 12/22/19 14:24 14:24 14:24 WBC 12.2 H RBC 4.42 Hgb 12.9 Hct 37.5 MCV 85 MCH 29.2 MCHC 34.4 RDW 14.6 H Plt Count 167 Seg Neutrophils % Not Reportable Sodium 139.2 Potassium 4.4 Chloride 104 Carbon Dioxide 26 Anion Gap 9 BUN 24 H Creatinine 1.14 Est GFR ( Amer) 57 L Glucose 226 H Calcium 9.0 Total Bilirubin 1.0 AST 36 Alkaline Phosphatase 74 Total Protein 6.4 Albumin 3.7 Triglycerides 166 H Cholesterol 119.26 LDL Cholesterol Direct 63 VLDL Cholesterol 33.2 H HDL Cholesterol 30 L TSH Urine Color Urine Appearance Urine pH Ur Specific [place] Urine Protein Urine Glucose (UA) Urine Ketones Urine Blood Urine Nitrite Ur Leukocyte Esterase Urine RBC (Auto) 12/22/19 12/22/19 12/22/19 14:24 15:44 19:59 WBC 12.3 H RBC 4.02 Hgb 11.8 L Hct 34.4 L MCV 85 MCH 29.4 MCHC 34.5 RDW 14.4 H Plt Count 144 L Seg Neutrophils % Not Reportable Sodium Potassium Chloride Carbon Dioxide Anion Gap BUN Creatinine Est GFR ( Amer) Glucose Calcium Total Bilirubin AST Alkaline Phosphatase Total Protein Albumin Triglycerides Cholesterol LDL Cholesterol Direct VLDL Cholesterol HDL Cholesterol TSH 0.57 Urine Color ANIYAH Urine Appearance CLOUDY Urine pH 5.0 Ur Specific [place] 1.013 Urine Protein 100 H Urine Glucose (UA) NEGATIVE Urine Ketones NEGATIVE Urine Blood LARGE H Urine Nitrite POSITIVE H Ur Leukocyte Esterase NEGATIVE Urine RBC (Auto) >182 12/22/19 12/22/19 12/22/19 14:24 14:24 16:36 Creatine Kinase 151 H Troponin I 1.780 1.260 NT-Pro-B Natriuret Pep 12/22/19 12/22/19 12/23/19 16:36 22:17 03:01 Creatine Kinase Troponin I 1.480 1.670 NT-Pro-B Natriuret Pep 3060 H 12/23/19 09:11 Creatine Kinase Troponin I 1.230 NT-Pro-B Natriuret Pep Impressions: Chest X-Ray 12/22/19 16:29 IMPRESSION: NO ACUTE RADIOGRAPHIC FINDING IN THE CHEST. Chest/Abdomen CTA 12/22/19 16:41 IMPRESSION: 1. NORMAL CTA OF THE CHEST. NO PULMONARY EMBOLI. 2. SCATTERED ATELECTASIS/SCARRING IN THE LUNG BASES. 3. MILD MEDIASTINAL AND LEFT HILAR ADENOPATHY. ETIOLOGY AND SIGNIFICANCE NOT APPARENT. Qualifiers PATIENT BEING DISCHARGED WITH ANY OF THE FOLLOWING DIAGNOSIS: RI RI Pt being discharged on Aspirin therapy?: Yes RI Pt being discharged on Statins?: Yes RI Pt discharged ACEI/ARBS?: No Reason(s) for not prescribing ACEI/ARBS:: Procedure Contraindicated Assessment & Plan - Time Time Spent: 50 to 70 Minutes Medications reviewed and adjusted accordingly: Yes Anticipated dischagre: [facility]
[2019-12-23 12:43] VITALS: BP 138/41
[2019-12-23] MEDS ORDERED: CEFTRIAXONE 1 GM/D5W RTU 1 GM/50 ML RTUPB IV SCH (22:00)
== END 2019-12-23 13:08 | disposition short-term general hospital (02) | DRG 281 ==
LOC: ER 14:43 → EH 19:37 → 3S 20:34
PROVIDERS: ADMIT Internal Medicine; ATTEND Internal Medicine
DX: I21.4 Non-ST elevation (NSTEMI) myocardial infarction (principal); N39.0 Urinary tract infection, site not specified; E78.5 Hyperlipidemia, unspecified; E11.51 Type 2 diabetes mellitus with diabetic peripheral angiopathy without gangrene; I87.8 Other specified disorders of veins; E66.01 Morbid (severe) obesity due to excess calories; R31.9 Hematuria, unspecified; W01.0XXA Fall on same level from slipping, tripping and stumbling without subsequent striking against object, initial encounter; E78.00 Pure hypercholesterolemia, unspecified; I25.10 Atherosclerotic heart disease of native coronary artery without angina pectoris; I10 Essential (primary) hypertension; R79.89 Other specified abnormal findings of blood chemistry; Y93.01 Activity, walking, marching and hiking; Y92.009 Unspecified place in unspecified non-institutional (private) residence as the place of occurrence of the external cause; Z86.73 Personal history of transient ischemic attack (TIA), and cerebral infarction without residual deficits; Z87.891 Personal history of nicotine dependence; Z85.821 Personal history of Merkel cell carcinoma; Z85.42 Personal history of malignant neoplasm of other parts of uterus; Z85.72 Personal history of non-Hodgkin lymphomas; Z82.49 Family history of ischemic heart disease and other diseases of the circulatory system; Z83.3 Family history of diabetes mellitus; Z79.899 Other long term (current) drug therapy; Z79.4 Long term (current) use of insulin; Z88.6 Allergy status to analgesic agent; Z88.0 Allergy status to penicillin; Z88.8 Allergy status to other drugs, medicaments and biological substances; Z91.048 Other nonmedicinal substance allergy status; Z79.02 Long term (current) use of antithrombotics/antiplatelets
CPT/HCPCS: 36415; 71045; 71275; 80061; 81001; 82550; 82962; 83036; 83880; 84443; 84484; 85379; 85610; 85730; 87070; 93005; 93010; 96361; 96374; 96375; 99291; J0696; J1644; J2405; J3010; J3490; J7030

== ENCOUNTER 2020-07-28 21:31 | Emergency (ER) | payer BC, MEDICARE ==
--- NOTE | 2020-07-28 22:31 | ER Document Report ---
ED Medical Screen (RME) - General Chief Complaint: Fever Stated Complaint: FEVER Time Seen by Provider: 07/28/20 22:26 Primary Care Provider: RODRIGUEZ GEORGES MD [Primary Care Provider] - Follow up as needed Mode of Arrival: Wheelchair Information source: Patient Notes: 75-year-old female presented to ED for busted blisters on the left leg and blisters on the right leg. She states she does have a history of 3 strokes diabetes peripheral vascular disease and heart failure. She states tonight she came in because she had a temperature of 100.4 at home and was concerned with the positive blister on her left leg. Patient does not have any other Covid symptoms except for the fever which could be from the cellulitis to her legs. Patient is alert and oriented able to answer all questions appropriately. She does have 3+ edema in both legs. She states this is frequently due to her peripheral vascular disease and the fact that her legs are hanging down. We will get blood urine and blood cultures and she will be seen by another provider. I have greeted and performed a rapid initial assessment of this patient. A comprehensive ED assessment and evaluation of the patient, analysis of test results and completion of medical decision making process will be conducted by an additional ED providers. TRAVEL OUTSIDE OF THE [place] IN LAST 30 DAYS: No - Related Data Allergies/Adverse Reactions: atenolol [Atenolol] Allergy (Severe, Verified 07/28/20 22:26) dapagliflozin [From Farxiga] Allergy (Severe, Verified 07/28/20 22:26) Syncope meperidine HCl [From Demerol] Allergy (Severe, Verified 07/28/20 22:26) oxycodone HCl [From Percodan] Allergy (Severe, Verified 07/28/20 22:26) Penicillins Allergy (Severe, Verified 07/28/20 22:26) saxagliptin [From Onglyza] Allergy (Severe, Verified 07/28/20 22:26) adhesive tape Allergy (Verified 07/28/20 22:26) Past Medical History - Social History Family history: Reviewed & Not Pertinent - Past Medical History Cardiac Medical History: Reports: Hx Congestive Heart Failure, Hx Hypercholesterolemia, Hx Hypertension Denies: Hx Coronary Artery Disease, Hx Heart Attack Pulmonary Medical History: Reports: Hx Asthma - as a child Denies: Hx Bronchitis, Hx COPD, Hx Pneumonia Neurological Medical History: Reports: Hx Cerebrovascular Accident - Left & right-sided lacunar infarct. 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 GI Medical History: Denies: Hx Gastroesophageal Reflux Disease Musculoskeltal Medical History: Reports Hx Arthritis Psychiatric Medical History: Denies: Hx Depression Past Surgical History: Reports: Hx Cardiac Catheterization - 1996 wake negative, Hx Cardiac Surgery - cardiac cath, Hx Cholecystectomy, Hx Herniorrhaphy, Hx Hysterectomy, Hx Orthopedic Surgery - left fibula, Hx Tonsillectomy - Immunizations Hx Diphtheria, Pertussis, Tetanus Vaccination: Yes Physical Exam - Vital signs Vitals: Temp Pulse Resp BP Pulse Ox 99.7 F 118 H 18 154/89 H 96 07/28/20 22:03 07/28/20 22:03 07/28/20 22:03 07/28/20 22:03 07/28/20 22:03 Course - Vital Signs Vital signs: Temp Pulse Resp BP Pulse Ox 99.7 F 118 H 18 154/89 H 96 07/28/20 22:03 07/28/20 22:03 07/28/20 22:03 07/28/20 22:03 07/28/20 22:03 Doctor's Discharge - Discharge Referrals: RODRIGUEZ GEORGES MD [Primary Care Provider] - Follow up as needed
[2020-07-28 23:23] LABS: ABSOLUTE BASOPHILS # (AUTO) 0.1 10^3/uL (0.0-0.2); ABSOLUTE EOSINOPHILS # (AUTO) 0.1 10^3/uL (0.0-0.6); ABSOLUTE NEUT (AUTO) 9.3 10^3/uL (1.7-8.2); BASOPHILS % (AUTO) 0.9 % (0-2); EOSINOPHILS % (AUTO) 1.1 % (0-6); HEMATOCRIT 39.7 % (36.0-47.0); HEMOGLOBIN 12.9 g/dL (12.0-15.5); LYMPHOCYTES % (AUTO) 8.4 % (13-45); MEAN CORPUSCULAR HEMOGLOBIN 27.8 pg (27.0-33.4); MEAN CORPUSCULAR HGB CONC 32.6 g/dL (32.0-36.0); MEAN CORPUSCULAR VOLUME 86 fl (80-97); MONOCYTES % (AUTO) 8.3 % (3-13); RED BLOOD COUNT 4.64 10^6/uL (3.72-5.28); RED CELL DISTRIBUTION WIDTH 15.1 % (11.5-14.0); SEGMENTED NEUTROPHILS % (AUTO) 81.3 % (42-78); TOTAL CELLS COUNTED % (AUTO) 100 %; WHITE BLOOD COUNT 11.5 10^3/uL (4.0-10.5)
[2020-07-28 23:25] LABS: APPEARANCE,URINE CLOUDY; BILIRUBIN,URINE NEGATIVE (NEGATIVE); COLOR,URINE YELLOW; GLUCOSE, URINE >=500 mg/dL (NEGATIVE); KETONES,URINE NEGATIVE (NEGATIVE); LEUKOCYTE ESTERASE,URINE LARGE (NEGATIVE); NITRITE,URINE POSITIVE (NEGATIVE); PROTEIN,URINE NEGATIVE (NEGATIVE); URINE SPECIFIC GRAVITY 1.024; UROBILINOGEN,URINE NEGATIVE mg/dL (<2.0)
[2020-07-28 23:37] LABS: ALBUMIN 4.1 g/dL (3.5-5.0); ALKALINE PHOSPHATASE 84 U/L (38-126); ANION GAP 9 (5-19); ASPARTATE AMINO TRANSFERASE 23 U/L (14-36); BILIRUBIN,DIRECT 0.1 mg/dL (0.0-0.4); BILIRUBIN,TOTAL 0.7 mg/dL (0.2-1.3); BLOOD UREA NITROGEN 24 mg/dL (7-20); CALCIUM 9.4 mg/dL (8.4-10.2); CARBON DIOXIDE 28 mmol/L (22-30); CHLORIDE 103 mmol/L (98-107); GLUCOSE 263 mg/dL (75-110); POTASSIUM 4.2 mmol/L (3.6-5.0); TOTAL PROTEIN 6.9 g/dL (6.3-8.2)
[2020-07-28 23:55] LABS: PLATELET COUNT 169 10^3/uL (150-450)
--- NOTE | 2020-07-28 23:58 | RADIOLOGY REPORT (SQ) ---
EXAM DESCRIPTION: XR CHEST 1 VIEW COMPLETED DATE/TME: 07/28/2020 23:15 CLINICAL HISTORY: 75 years, Female, Peripheral edema fever COMPARISON: Prior study from 12/21/2019 NUMBER OF VIEWS: One TECHNIQUE: Single frontal view of the chest was obtained portably LIMITATIONS: None. FINDINGS: Cardiac and mediastinal contours are stable. Lungs are clear. No pleural effusion or pneumothorax. IMPRESSION: No acute disease. copyright 2010 [employer]- All Rights Reserved
[2020-07-29] MEDS ORDERED: ACETAMINOPHEN 325 MG TABLET PO ONE (05:01)
[2020-07-29 05:42] VITALS: BP 138/76
[2020-07-29] MEDS ORDERED: CEPHALEXIN 500 MG CAPSULE PO ONE (08:17)
[2020-07-29] MEDS ORDERED: POLYMYXIN B SULFATE/TMP OPH SOLN (10 ML/ER DISP) OU ONE (08:17)
--- NOTE | 2020-07-29 08:43 | ER Document Report ---
Entered by LEYDI CABA SCRIBE 07/29/20 0816 Acting as scribe for:MIMI VALIENTE MD ED General - General Chief Complaint: Wound Infection Stated Complaint: FEVER Time Seen by Provider: 07/28/20 22:26 Primary Care Provider: RODRIGUEZ GEORGES MD [Primary Care Provider] - Follow up as needed Mode of Arrival: Wheelchair Information source: Patient Notes: This 75-year-old female patient presents to the emergency department today with complaints of a left leg blister that has popped and concerns for cellulitis. Patient states last night she had an area to her left lateral proximal leg that opened and drained "serosanguineous fluid". Patient also mentions "my eyes are infected", adding that she has had discharge home her eyes for the last few days. Patient mentions she has had frequent urination as well. TRAVEL OUTSIDE OF THE [place] IN LAST 30 DAYS: No - Related Data Allergies/Adverse Reactions: atenolol [Atenolol] Allergy (Severe, Verified 07/28/20 22:26) dapagliflozin [From Farxiga] Allergy (Severe, Verified 07/28/20 22:26) Syncope meperidine HCl [From Demerol] Allergy (Severe, Verified 07/28/20 22:26) oxycodone HCl [From Percodan] Allergy (Severe, Verified 07/28/20 22:26) Penicillins Allergy (Severe, Verified 07/28/20 22:26) saxagliptin [From Onglyza] Allergy (Severe, Verified 07/28/20 22:26) adhesive tape Allergy (Verified 07/28/20 22:26) Past Medical History - General Information source: Patient - Social History Smoking Status: Never Smoker Cigarette use (# per day): No Frequency of alcohol use: None Drug Abuse: None Lives with: Family Family History: CAD, DM, Other - chf - Past Medical History Cardiac Medical History: Reports: Hx Congestive Heart Failure, Hx Hypercholesterolemia, Hx Hypertension Pulmonary Medical History: Reports: Hx Asthma - as a child Neurological Medical History: Reports: Hx Cerebrovascular Accident - Left & right-sided lacunar infarct Endocrine Medical History: Reports: Hx Diabetes Mellitus Type 2 Malignancy Medical History: 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 Musculoskeletal Medical History: Reports Hx Arthritis Past Surgical History: Reports: Hx Cardiac Catheterization - 1995 wake negative, Hx Cardiac Surgery - cardiac cath, Hx Cholecystectomy, Hx Herniorrhaphy, Hx Hysterectomy, Hx Orthopedic Surgery - left fibula, Hx Tonsillectomy - Immunizations Hx Diphtheria, Pertussis, Tetanus Vaccination: Yes Hx Pneumococcal Vaccination: 05/29/16 Review of Systems - Review of Systems Constitutional: No symptoms reported EENT: No symptoms reported Cardiovascular: No symptoms reported Respiratory: No symptoms reported Gastrointestinal: No symptoms reported Genitourinary: No symptoms reported Female Genitourinary: No symptoms reported Musculoskeletal: No symptoms reported Skin: See HPI, Change in color, Lesions Hematologic/Lymphatic: No symptoms reported Neurological/Psychological: No symptoms reported -: Yes All other systems reviewed and negative Physical Exam - Vital signs Vitals: Temp Pulse Resp BP Pulse Ox 99.7 F 118 H 18 154/89 H 96 07/28/20 22:03 07/28/20 22:03 07/28/20 22:03 07/28/20 22:03 07/28/20 22:03 - Notes Notes: Physical Exam: General: Alert, appears well. HEENT: Normocephalic. Atraumatic. PERRL. Extraocular movements intact. Oropharynx clear. There is purulent drainage and mucus coming from the right eye with minimal injection. Neck: Supple. Non-tender. Respiratory: No respiratory distress. Clear and equal breath sounds bilaterally. Cardiovascular: Regular rate and rhythm. Abdominal: Obese. Non-tender. No distension. Normal Bowel Sounds. Back: No gross abnormalities. Extremities: Moves all four extremities. Upper extremities: Normal inspection. Normal ROM. Lower extremities: See skin exam. 3+ pitting edema bilaterally. Neurological: Normal cognition. AAOx4. Normal speech. Psychological: Normal affect. Normal Mood. Skin: There is chronic erythema and thickening of the skin below the knees down to the ankles bilaterally. 3+ pitting edema bilaterally. Left anterior proximal leg has small popped blister with more intense surrounding erythema. There are corns to the medial great toes bilaterally. Course - Vital Signs Vital signs: Temp Pulse Resp BP Pulse Ox 98.4 F 110 H 16 138/76 H 98 07/29/20 05:00 07/29/20 05:00 07/29/20 05:00 07/29/20 05:00 07/29/20 05:00 - Laboratory Result Diagrams: 07/28/20 22:59 07/28/20 22:59 Laboratory results interpreted by me: 07/28/20 07/28/20 07/28/20 22:59 22:59 22:59 WBC 11.5 H RDW 15.1 H Lymph % (Auto) 8.4 L Absolute Neuts (auto) 9.3 H Seg Neutrophils % 81.3 H BUN 24 H Est GFR (MDRD) Non-Af 56 L Glucose 263 H Lipase 582.0 H Urine Glucose (UA) >=500 H Urine Blood SMALL H Urine Nitrite POSITIVE H Ur Leukocyte Esterase LARGE H Urine Ascorbic Acid 40 H Discharge - Discharge Clinical Impression: Cellulitis of left lower leg Conjunctivitis Qualifiers: Conjunctivitis type: unspecified Laterality: bilateral Qualified Code(s): H10.9 - Unspecified conjunctivitis Urinary tract infection Qualifiers: Urinary tract infection type: acute cystitis Hematuria presence: with hematuria Qualified Code(s): N30.01 - Acute cystitis with hematuria Condition: Stable Disposition: HOME, SELF-CARE Additional Instructions: Cellulitis You have an infection of your skin and underlying soft tissues called cellulitis. This is due to bacteria, which can enter through any break in the skin, or even through an irritated hair follicle. Untreated, cellulitis will usually worsen. Antibiotics are required. Usually, warm packs or warm soaks, and elevation of the infected area are recommended. You should start getting better within 24 to 36 hours. Most infections respond quickly to the right medication. Follow-up care is important, however, to check for abscess (boil) formation, unsuspected foreign body, or resistant infection. If you develop fever, chills, or if the area of infection is becoming rapidly more swollen or painful, call the doctor at once. Conjunctivitis You have an infection in your eye, commonly known as "pink eye." Conjunctivitis causes redness, mild discomfort, itching, and mattering on the eyelids. It is very contagious, so you must be careful to wash your hands after touching your face so you don't pass the infection on to others. Conjunctivitis is caused by both viruses and bacteria. It usually responds quickly to treatment with antibiotic drops. These should be placed in the eye as prescribed (usually every three to four hours while you're awake). If you wear contact lenses, don't put them in your eyes until the infection is cleared and you are no longer using the drops (unless your doctor advises you otherwise). Should you develop increasing eye pain, severe swelling, decreased vision, or fail to improve as expected, please return for re-examination. Urinary Tract Infection Your evaluation indicates that you have a urinary tract infection. This is due to germs growing in the bladder. This is a common problem. This infection usually responds quickly to antibiotics. Your antibiotic should be taken exactly as prescribed. Drink plenty of fluids -- three to four quarts a day. Occasionally, a bladder anesthetic will be prescribed to help stop the feeling of urgency until the antibiotic has a chance to clear the infection. This may cause your urine to be dark orange. Certain urine infections require a culture. If the doctor obtained a culture, the results will be back in two days. You should call to see if a change in treatment is needed. A repeat urinalysis after you finish treatment is often recommended. The physician will let you know if further testing is required. Call the doctor if you develop fever, chills, flank pain, inability to urinate, or blood in the urine. Use the eyedrops placing 2 drops in each eye every 4 hours today, then 1 drop in each eye every 4 hours starting tomorrow. Clean the mucus from your eyes using warm wet washcloths. Take the Keflex as prescribed. Drink plenty of fluids. Try to elevate your feet as much as possible. Follow-up with your primary care provider if not improving. RETURN TO THE EMERGENCY ROOM IF ANY NEW OR WORSENING SYMPTOMS. Prescriptions: Cephalexin Monohydrate [Keflex 500 mg Capsule] 500 mg PO QID #28 capsule Referrals: RODRIGUEZ GEORGES MD [Primary Care Provider] - Follow up as needed I personally performed the services described in the documentation, reviewed and edited the documentation which was dictated to the scribe in my presence, and it accurately records my words and actions.
== END 2020-07-29 08:55 | disposition home or self-care (01) ==
LOC: ER 21:31
DX: L03.116 Cellulitis of left lower limb (principal); S80.822A Blister (nonthermal), left lower leg, initial encounter; X58.XXXA Exposure to other specified factors, initial encounter; L84 Corns and callosities; H10.9 Unspecified conjunctivitis; N30.01 Acute cystitis with hematuria; I10 Essential (primary) hypertension; E11.9 Type 2 diabetes mellitus without complications; Z85.72 Personal history of non-Hodgkin lymphomas; Z88.8 Allergy status to other drugs, medicaments and biological substances; Z88.6 Allergy status to analgesic agent; Z88.5 Allergy status to narcotic agent; Z88.0 Allergy status to penicillin; Z91.048 Other nonmedicinal substance allergy status
CPT/HCPCS: 99284; 36415; 87040; 87086; 83690; 85025; 87077; 87088; 80053; 81001; 87186; 87150 ×26; 71045; A9270 ×3; J3490

== ENCOUNTER → 2020-08-05 | Outpatient (CLI) | payer MEDICARE ==
[2020-08-05 13:36] LABS: HEMATOCRIT 38.6 % (36.0-47.0); HEMOGLOBIN 12.8 g/dL (12.0-15.5); MEAN CORPUSCULAR HEMOGLOBIN 28.4 pg (27.0-33.4); MEAN CORPUSCULAR HGB CONC 33.2 g/dL (32.0-36.0); MEAN CORPUSCULAR VOLUME 86 fl (80-97); PLATELET COUNT 198 10^3/uL (150-450); RED BLOOD COUNT 4.52 10^6/uL (3.72-5.28); RED CELL DISTRIBUTION WIDTH 15.5 % (11.5-14.0)
[2020-08-05 14:00] LABS: ALBUMIN 4.1 g/dL (3.5-5.0); ALKALINE PHOSPHATASE 66 U/L (38-126); ANION GAP 11 (5-19); ASPARTATE AMINO TRANSFERASE 29 U/L (14-36); BILIRUBIN,DIRECT 0.3 mg/dL (0.0-0.4); BILIRUBIN,TOTAL 0.9 mg/dL (0.2-1.3); BLOOD UREA NITROGEN 22 mg/dL (7-20); CARBON DIOXIDE 24 mmol/L (22-30); CHLORIDE 109 mmol/L (98-107); GLUCOSE 165 mg/dL (75-110); POTASSIUM 4.7 mmol/L (3.6-5.0); TOTAL PROTEIN 7.1 g/dL (6.3-8.2)
== END ==
LOC: OD 12:14
PROVIDERS: ATTEND Internal Medicine
DX: L03.116 Cellulitis of left lower limb (principal); R78.81 Bacteremia; N39.0 Urinary tract infection, site not specified; R60.9 Edema, unspecified
CPT/HCPCS: 36415; 80053; 83690; 85027; 87040